=== PATIENT | female | born 1985 | race Caucasian/White ===

== ENCOUNTER → 2016-03-21 | Outpatient (CLI) | payer OTHER | LOC: RAD 09:42 | PROVIDERS: ATTEND Physician Assistant | DX: M23.92 Unspecified internal derangement of left knee (principal) | CPT/HCPCS: 78315; A9503; Q9969 ==

== ENCOUNTER → 2016-04-05 | Outpatient (CLI) | payer OTHER ==
[2016-04-05 10:11] LABS: ABSOLUTE EOSINOPHILS # (AUTO) 0.1 10^3/uL (0.0-0.6); ABSOLUTE LYMPHOCYTES (AUTO) 1.5 10^3/uL (0.5-4.7); ABSOLUTE MONOCYTES (AUTO) 0.4 10^3/uL (0.1-1.4); ABSOLUTE NEUT (AUTO) 3.7 10^3/uL (1.7-8.2); BASOPHILS % (AUTO) 0.2 % (0-2); HEMATOCRIT 45.3 % (36.0-47.0); HGB HCT DIFFERENCE -0.3; LYMPHOCYTES % (AUTO) 26.5 % (13-45); MEAN CORPUSCULAR HEMOGLOBIN 30.5 pg (27.0-33.4); MEAN CORPUSCULAR HGB CONC 33.1 g/dL (32.0-36.0); MEAN CORPUSCULAR VOLUME 92 fl (80-97); MONOCYTES % (AUTO) 6.5 % (3-13); RED BLOOD COUNT 4.92 10^6/uL (3.72-5.28); RED CELL DISTRIBUTION WIDTH 13.5 % (11.5-14.0); SEGMENTED NEUTROPHILS % (AUTO) 65.8 % (42-78); WHITE BLOOD COUNT 5.6 10^3/uL (4.0-10.5)
[2016-04-05 10:36] LABS: ALANINE AMINOTRANSFERASE 35 U/L (9-52); ALBUMIN 4.5 g/dL (3.5-5.0); ALKALINE PHOSPHATASE 65 U/L (38-126); ANION GAP 11 (5-19); ASPARTATE AMINO TRANSFERASE 26 U/L (14-36); BILIRUBIN,TOTAL 1.1 mg/dL (0.2-1.3); BLOOD UREA NITROGEN 14 mg/dL (7-20); CALCIUM 10.1 mg/dL (8.4-10.2); CARBON DIOXIDE 30 mmol/L (22-30); CHLORIDE 101 mmol/L (98-107); CREATININE RESULT 0.85 mg/dL (0.52-1.25); GLUCOSE 78 mg/dL (75-110); POTASSIUM 3.8 mmol/L (3.6-5.0); SODIUM 141.6 mmol/L (137-145); TOTAL PROTEIN 7.5 g/dL (6.3-8.2); URIC ACID 4.8 mg/dL (2.5-6.2)
[2016-04-05 10:39] LABS: C-REACTIVE PROTEIN < 5.0 mg/L (<10.0)
[2016-04-05 11:13] LABS: ERYTHROCYTE SEDIMENTATION RATE 4 mm/hr (0-20)
== END ==
LOC: OD 08:41
PROVIDERS: ATTEND Physician Assistant
DX: M25.562 Pain in left knee (principal); R60.9 Edema, unspecified
CPT/HCPCS: 36415; 80053; 84550; 85025; 85652; 86038; 86140; 86430

== ENCOUNTER → 2016-11-30 | Outpatient (CLI) | payer MEDICAID ==
--- NOTE | 2016-11-30 11:56 | RADIOLOGY REPORT (SQ) ---
EXAM DESCRIPTION: TIBIA FIBULA RIGHT COMPLETED DATE/TIME: 11/30/2016 11:47 am REASON FOR STUDY: UNSPECIFIED INJURY OF RIGHT LOWER LEG, INITIAL ENCOUNTER S89.91XA UNSPECIFIED INJ URY OF RIGHT LOWER LEG, INITIAL ENCO COMPARISON: None. NUMBER OF VIEWS: Two views. TECHNIQUE: Two radiographic images acquired of the right tibia and fibula to include the knee and an kle in at least one projection. LIMITATIONS: None. FINDINGS: MINERALIZATION: Normal. BONES: No acute fracture or dislocation. No worrisome bone lesions. SOFT TISSUES: No obvious swelling or foreign body. OTHER: No other significant finding. IMPRESSION: NEGATIVE STUDY OF THE RIGHT TIBIA AND FIBULA. NO RADIOGRAPHIC EVIDENCE OF ACUTE INJURY. TECHNICAL DOCUMENTATION: JOB ID: [id number] [employer]- All Rights Reserved
== END ==
LOC: OD 11:30
PROVIDERS: ATTEND Nurse Practitioner Acute Care
DX: S89.91XA Unspecified injury of right lower leg, initial encounter (principal); X58.XXXA Exposure to other specified factors, initial encounter

== ENCOUNTER → 2016-12-11 | Outpatient (CLI) | payer MEDICAID ==
--- NOTE | 2016-12-11 12:30 | RADIOLOGY REPORT (SQ) ---
EXAM DESCRIPTION: HAND RIGHT 3 VIEWS COMPLETED DATE/TIME: 12/11/2016 11:55 am REASON FOR STUDY: UNSP INJURY OF RIGHT WRIST, HAND AND FINGER(S), INIT ENCNTR S69.91XA UNSP INJURY OF RIGHT WRIST, HAND AND FINGER(S), INI COMPARISON: None. EXAM PARAMETERS: NUMBER OF VIEWS: Three views. TECHNIQUE: AP, lateral and oblique radiographic images acquired of the right hand. LIMITATIONS: None. FINDINGS: MINERALIZATION: Normal. BONES: No acute fracture or dislocation. No worrisome bone lesions. JOINTS: No effusions. SOFT TISSUES: No soft tissue swelling. No foreign body. OTHER: No other significant finding. IMPRESSION: NEGATIVE STUDY OF THE RIGHT HAND. NO RADIOGRAPHIC EVIDENCE OF ACUTE INJURY. TECHNICAL DOCUMENTATION: JOB ID: [id number] [employer]- All Rights Reserved
== END ==
LOC: OD 11:29
PROVIDERS: ATTEND Nurse Practitioner Acute Care
DX: S69.91XA Unspecified injury of right wrist, hand and finger(s), initial encounter (principal); X58.XXXA Exposure to other specified factors, initial encounter

== ENCOUNTER → 2016-12-22 | Outpatient (CLI) | payer MEDICAID ==
--- NOTE | 2016-12-22 09:52 | RADIOLOGY REPORT (SQ) ---
EXAM DESCRIPTION: CHEST PA/LATERAL COMPLETED DATE/TIME: 12/22/2016 8:45 am REASON FOR STUDY: SHORTNESS OF BREATH COMPARISON: 01/04/2016 EXAM PARAMETERS: NUMBER OF VIEWS: two views TECHNIQUE: Digital Frontal and Lateral radiographic views of the chest acquired. RADIATION DOSE: NA LIMITATIONS: none FINDINGS: LUNGS AND PLEURA: Surgical katya are present in the medial right lung apex. No focal infiltrates. No pleural effusion. No pneumothorax. MEDIASTINUM AND HILAR STRUCTURES: No masses or contour abnormalities. HEART AND VASCULAR STRUCTURES: Heart normal size. No evidence for failure. BONES: Osteopenic. Old healed right posterolateral 8th rib fracture HARDWARE: None in the chest. OTHER: No other significant finding. IMPRESSION: No acute findings TECHNICAL DOCUMENTATION: JOB ID: [id number] [employer]- All Rights Reserved
== END ==
LOC: OD 08:28
PROVIDERS: ATTEND Family Medicine
DX: R06.02 Shortness of breath (principal)
CPT/HCPCS: 71020

== ENCOUNTER 2017-03-29 14:49 | Day surgery (SDC) | payer OTHER, MEDICAID ==
[2017-03-23 09:55] LABS: APPEARANCE,URINE SLIGHTLY-CLOUDY; BILIRUBIN,URINE NEGATIVE (NEGATIVE); COLOR,URINE YELLOW; GLUCOSE, URINE NEGATIVE (NEGATIVE); KETONES,URINE NEGATIVE (NEGATIVE); LEUKOCYTE ESTERASE,URINE NEGATIVE (NEGATIVE); NITRITE,URINE NEGATIVE (NEGATIVE); PROTEIN,URINE NEGATIVE (NEGATIVE); URINE SPECIFIC GRAVITY 1.012; UROBILINOGEN,URINE NEGATIVE mg/dL (<2.0)
[2017-03-23 09:56] LABS: ABSOLUTE LYMPHOCYTES (AUTO) 1.5 10^3/uL (0.5-4.7); ABSOLUTE MONOCYTES (AUTO) 0.3 10^3/uL (0.1-1.4); ABSOLUTE NEUT (AUTO) 2.6 10^3/uL (1.7-8.2); BASOPHILS % (AUTO) 0.5 % (0-2); HEMATOCRIT 41.8 % (36.0-47.0); HEMOGLOBIN 14.4 g/dL (12.0-15.5); MEAN CORPUSCULAR HEMOGLOBIN 31.3 pg (27.0-33.4); MEAN CORPUSCULAR HGB CONC 34.5 g/dL (32.0-36.0); MEAN CORPUSCULAR VOLUME 91 fl (80-97); MONOCYTES % (AUTO) 6.1 % (3-13); PLATELET COUNT 161 10^3/uL (150-450); RED CELL DISTRIBUTION WIDTH 13.8 % (11.5-14.0); SEGMENTED NEUTROPHILS % (AUTO) 59.4 % (42-78); TOTAL CELLS COUNTED % (AUTO) 100 %; WHITE BLOOD COUNT 4.4 10^3/uL (4.0-10.5)
[2017-03-23 10:27] LABS: ANION GAP 11 (5-19); BLOOD UREA NITROGEN 7 mg/dL (7-20); CARBON DIOXIDE 28 mmol/L (22-30); CHLORIDE 104 mmol/L (98-107); GLUCOSE 85 mg/dL (75-110); SODIUM 142.6 mmol/L (137-145)
--- NOTE | 2017-03-23 13:58 | EKG REPORT ---
SEVERITY:- NORMAL ECG - SINUS RHYTHM : Confirmed by: Adiel Jimenez MD 23-Mar-2017 13:57:41
[~2017-03-29 14:49] MED LIST: CLINDAMYCIN 600 MG/D5W RTU 600 MG/50 ML RTUPB IV PRN; LACTATED RINGERS 1000 ML IV PRN; LIDOCAINE 0.5% INJ-PF (5 MG/ML) 50 ML SDV SUBCUT PRN
[2017-03-29] MEDS ORDERED: ACETAMINOPHEN 325 MG TABLET ONE (16:59)
[2017-03-29] MEDS ORDERED: MIDAZOLAM 2 MG/2 ML INJ ONE (18:38)
[2017-03-29] MEDS ORDERED: PROPOFOL INJ 200 MG/20 ML VIAL IV ONE (18:38)
[2017-03-29] MEDS ORDERED: HYDROMORPHONE HCL INJ/PF 2 MG/ML AMPULE ONE ×2 (18:38→18:39)
[2017-03-29] MEDS ORDERED: ACETAMINOPHEN 100 ML IV ONE (18:38)
[2017-03-29] MEDS ORDERED: BUPIVACAINE HCL 0.5 % INJ/PF 30 ML SDV ONE (18:38)
[2017-03-29] MEDS ORDERED: ONDANSETRON HCL INJ/PF 4 MG/2 ML SDV ONE ×2 (18:38→21:16)
[2017-03-29] MEDS ORDERED: FENTANYL CITRATE INJ/PF 100 MCG/2 ML AMPUL ONE (18:38)
[2017-03-29] MEDS ORDERED: PROMETHAZINE HCL INJ 25 MG/1 ML VIAL IV PRN (19:21)
[2017-03-29] MEDS ORDERED: MEPERIDINE HCL/PF INJ 25 MG/1 ML DISP.SYRIN IV PRN (19:21)
[2017-03-29] MEDS ORDERED: DIPHENHYDRAMINE HCL 50 MG/ML VIAL IV PRN (19:21)
[2017-03-29] MEDS ORDERED: FENTANYL CITRATE INJ/PF 100 MCG/2 ML AMPUL IV PRN ×3 (19:21)
--- NOTE | 2017-03-29 20:28 | RADIOLOGY REPORT (SQ) ---
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 FLUOROSCOPY TIME: 0.4 MINUTES. 2 images saved to PACS. TECHNIQUE: Intra-operative images acquired during surgical procedure to evaluate progress. NUMBER OF IMAGES: 2 LIMITATIONS: None. FINDINGS: 2 fluoroscopic images demonstrates 3 cannulated screws transfixing the tibial tuberosity. No gross complication. IMPRESSION: IMAGE(S) OBTAINED DURING PROCEDURE. COMMENT: Quality ID [id number]: Final reports for procedures using fluoroscopy that document radiation exp osure indices, or exposure time and number of fluorographic images (if radiation exposure indices are not available) Please consult full operative report of the attending physician for description of the procedure. TECHNICAL DOCUMENTATION: JOB ID: [id number] [employer]- All Rights Reserved
--- NOTE | 2017-03-29 20:28 | RADIOLOGY REPORT (SQ) ---
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 FLUOROSCOPY TIME: 0.4 MINUTES. 2 images saved to PACS. TECHNIQUE: Intra-operative images acquired during surgical procedure to evaluate progress. NUMBER OF IMAGES: 2 LIMITATIONS: None. FINDINGS: 2 fluoroscopic images demonstrates 3 cannulated screws transfixing the tibial tuberosity. No gross complication. IMPRESSION: IMAGE(S) OBTAINED DURING PROCEDURE. COMMENT: Quality ID [id number]: Final reports for procedures using fluoroscopy that document radiation exp osure indices, or exposure time and number of fluorographic images (if radiation exposure indices are not available) Please consult full operative report of the attending physician for description of the procedure. TECHNICAL DOCUMENTATION: JOB ID: [id number] [employer]- All Rights Reserved
--- NOTE | 2017-03-29 20:41 | Operative Report ---
Operative Report DATE OF SURGERY: 03/29/17 PREOPERATIVE DIAGNOSIS: Left chronic patellofemoral pain syndrome POSTOPERATIVE DIAGNOSIS: Same OPERATION: Left knee diagnostic arthroscopy and tibial tubercle transfer SURGEON: ANASTASIA BHATIA ANESTHESIA: GA TISSUE REMOVED OR ALTERED: none COMPLICATIONS: none ESTIMATED BLOOD LOSS: 30mL INTRAOPERATIVE FINDINGS: as above PROCEDURE: After receiving preoperative antibiotics patient was brought to the operating room where she was induced and intubated in supine position. A tourniquet has been applied to the left side and the left lower extremity was prepped and draped in a normal sterile surgical fashion. MRI was done identifying the left knee as the correct site. Esmarch was used to exsanguinate the extremity and the tourniquet was inflated at 300 mmHg. Marcaine was injected in the 2 previous portal sites. 11 blade was used to establish the anterior lateral portal first and the scope was introduced and the joint was distended with sterile saline solution. Anteromedial portal was established and then diagnostic scope was done. Patellofemoral joint was pristine. There is no chondromalacia or articular defect. Tracking jackson she was tracking laterally as anticipated. I then placed the extremity against the post and open the medial compartment where she also had pristine meniscus and cartilage. Flexed the knee and visualize the ACL PCL which were intact. At this point I placed the leg in [id number] and visualize the lateral compartment also show a complete pristine cartilage and lateral meniscus. Popliteal tendon was visualized. Fluid from the knee was then removed and then the instruments were removed. I then proceeded to do a 3 inch incision right over the distal aspect of the patella tendon over the tibial tubercle. I was able to then dissect medial lateral to the tibial tubercle. I released just about an inch of the tibialis anterior fascial tissue and expose the lateral aspect of the proximal tibia. Medially I was able then to place 2 K wires to use as a guide to use my saw with period was about 60 angle when I proceeded to use my saw to do my initial cup. I then went laterally and used a saw and completed my cut. I used the osteotome to then release it distally and allow for mobilization of the tibial tubercle. Once the tibial tubercle was mobile and freed was able to transfer medially and anterior. I used 3 K wires and used C-arm to confirm placement of the wires and make sure that was bicortical. I measured the appropriate length and placed 3 5.0 cannulated fully threaded screws. I did use the 3.5 cannulated drill to just drilled the proximal tibial tubercle to allow compression of the tubercle against the remaining tibia. The gap produced from the transfer was then filled with cancellus chips. AP and lateral x-rays were taken showing my typical tubercle transfer. Proceeded to approximate the tissue first using 0 Vicryl to approximate the tibialis anterior fascial layer to cover the osteotomy. We then proceeded to approximate the subcu tissue with 0 Vicryl and 2-0 Vicryl for dermis. We used 4 -0 Monocryl running subcuticular closure. Steri-Strips were applied and then 4 x 4 dressing was applied over the Steri-Strips. Soft roll was used wrapped extremity and then overwrapped with an Td bandage. Tourniquet was let down and drapes were removed. Patient was placed in a knee immobilizer. Extremity was elevated and the patient was transferred to PACU in stable condition once extubated.
--- NOTE | 2017-03-29 20:45 | PDOC DISCHARGE SUMMARY ---
Discharge Summary (SDC) - Discharge Final Diagnosis: Left knee diagnostic arthroscopy and tibial tubercle transfer Date of Surgery: 03/29/17 Discharge Date: 03/29/17 Condition: Good Treatment or Instructions: Keep knee immobilizer on. Okay to keep the dressing dry clean and intact for 4 days. Remove dressing in 4 days and okay to shower. Just for support and safety. Ice and elevate when not ambulating. Okay to weight-bear as tolerated with a knee immobilizer on. Instructed to follow-up in 10-14 days in the office. Prescriptions: Hydrocodone Bit/Acetaminophen [Hydrocodon-Acetaminophen 5-325] 1 - 2 each PO Q4HP PRN #60 tablet PRN Reason: Ondansetron HCl [Zofran 4 mg Tablet] 1 tab PO Q6HP PRN #20 tablet PRN Reason: Referrals: MELO DEWITT DO [Primary Care Provider] - Discharge Diet: As Tolerated Respiratory Treatments at Home: Deep Breathing/Coughing Discharge Activity: No Driving, No Lifting/Push/Pulling, Slowly Increase Activity Home Care Assistance: None Needed Adaptive Devices on Discharge: Axillary Crutches Report the Following to Your Physician Immediately: Shortness of Breath, Vomiting, Increase in Pain, Fever over 101 Degrees, Unusual Bleeding, Redness, Swelling, Warmth, Increased Soreness, Drainage-Yellow, Drainage-Hendrickson, Drainage- Green, Drainage-Foul Smelling
[2017-03-29] MEDS ORDERED: HYDROCODONE/ACETAMINOPHEN 7.5-325 MG TABLET PO PRN (22:24)
[2017-03-30] MEDS: ONDANSETRON HCL INJ/PF 4 MG/2 ML SDV IV PRN ×2 (02:26→10:38)
[2017-03-30] MEDS: HYDROCODONE/ACETAMINOPHEN 7.5-325 MG TABLET PO PRN ×2 (02:27→07:32)
[2017-03-30 10:49] VITALS: BP 102/62
== END 2017-03-30 11:19 | disposition home or self-care (01) ==
LOC: OROUT 14:49 → 4S 21:54 → OROUT 03-30 11:19
PROVIDERS: ATTEND Orthopaedic Surgery
PROC: 0SJD4ZZ Inspection of Left Knee Joint, Percutaneous Endoscopic Approach (ICD-10-PCS; principal; 2017-03-29 16:30)
DX: M22.2X2 Patellofemoral disorders, left knee (principal); M22.42 Chondromalacia patellae, left knee; M23.8X2 Other internal derangements of left knee; Z88.0 Allergy status to penicillin; Z88.5 Allergy status to narcotic agent; Z79.1 Long term (current) use of non-steroidal anti-inflammatories (NSAID); Z79.899 Other long term (current) drug therapy; Z91.040 Latex allergy status
CPT/HCPCS: 93005; 36415; 85025; 81025; 80048; 81001; 73560; 93010; 29870; 27418; L1830; C1713; J2250; J3010; J1170; J2405 ×2; J2704; J0131; 01392

== ENCOUNTER 2018-02-25 02:18 | Inpatient (IN) | payer MEDICAID ==
[2018-02-25] MEDS ORDERED: OXYTOCIN/NORMAL SALINE 20 UNIT/1,000 ML RTUINJ ONE (02:50)
[2018-02-25] MEDS ORDERED: MISOPROSTOL 0.2 MG TABLET ONE (02:50)
[2018-02-25] MEDS ORDERED: OXYTOCIN 10 UNIT/ML VIAL ONE (02:50)
[2018-02-25] MEDS ORDERED: LIDOCAINE 1% INJ-PF (10 MG/ML) 30 ML SDV ONE (02:50)
[2018-02-25] MEDS ORDERED: EPHEDRINE SULFATE INJ 50 MG/1 ML AMPULE ONE (02:53)
[2018-02-25] MEDS ORDERED: FENTANYL/BUPIVACAINE/NS/PF 300 MCG/150 ML RTUINJ EPI ONE (02:53)
[2018-02-25] MEDS ORDERED: FENTANYL CITRATE INJ/PF 100 MCG/2 ML AMPUL ONE (02:53)
[2018-02-25] MEDS ORDERED: PHENYLEPHRINE HCL INJ/PF 10 MG/1 ML SDV ONE (02:53)
[2018-02-25 02:54] LABS: APPEARANCE,URINE SLIGHTLY-CLOUDY; BILIRUBIN,URINE NEGATIVE (NEGATIVE); COLOR,URINE YELLOW; GLUCOSE, URINE NEGATIVE (NEGATIVE); KETONES,URINE NEGATIVE (NEGATIVE); LEUKOCYTE ESTERASE,URINE LARGE (NEGATIVE); NITRITE,URINE NEGATIVE (NEGATIVE); PROTEIN,URINE NEGATIVE (NEGATIVE); URINE SPECIFIC GRAVITY 1.005; UROBILINOGEN,URINE NEGATIVE mg/dL (<2.0)
[2018-02-25] MEDS ORDERED: BUPIVACAINE HCL 0.25 % INJ/PF (2.5 MG/1 ML) 30 ML VIAL ONE (02:54)
[2018-02-25] MEDS: RINGERS SOLUTION,LACTATED 1,000 ML IV PRN ×4 (02:56→08:23)
[2018-02-25 03:08] LABS: URINE AMPHETAMINES SCREEN NEGATIVE; URINE BARBITURATES SCREEN NEGATIVE; URINE BENZODIAZEPINES SCREEN NEGATIVE; URINE COCAINE SCREEN NEGATIVE; URINE MARIJUANA (THC) SCREEN NEGATIVE; URINE METHADONE SCREEN NEGATIVE
--- NOTE | 2018-02-25 03:13 | Admission Physical ---
Datetime Report Generated by CPN: 02/25/2018 03:12 CURRENT ADMISSION Chief Complaint: Uterine Contractions; Suspected Ruptured Membranes Indication for Induction: Not Applicable Admit Impression : Term, Intrauterine ; Ruptured Membranes Admit Plan: Admit to Unit; Initiate Labor Protocol ALLERGIES Medication Allergies: Yes Medication Allergies: haloperidol lactate/"Extreme Muscle (02/25/2018); oxycodone HCl/Itching, Swelli (02/25/2018); Penicillins/"Throat Swellin (02/25/2018); haloperidol/"Extreme Muscle (02/25/2018); oxycodone/Itching, Swelli (02/25/2018); acetaminophen/Swelling, Nause (02/25/2018); doxycycline/Throat Swelling (02/25/2018); latex/"Swelling, redn (02/25/2018) OBSTETRICAL HISTORY EDC: 03/15/2018 00:00 : 6 Para: 2 Term: 0 : 2 SAB: 3 Livin Obstetrical History Comments: g1- 2007, sab. 7 weeks g2-2007, sab, 4 weeks g3-2011, , 35 weeks, female, 5lb 11oz, was a twin but twin was lost in first trimester and PTL with PTD g4-2011, , 30 weeks, 3lb 12 oz, male, PTL with PTD, placental calcifications g5-2017, sab, 4 weeks g6-current , pubic symphysis diastasis, on P17 SEE RECORDS Alcohol: No Marijuana : No Cocaine: No Other Illicit Drugs: No Cigarettes: Never Smoker. [id number] MEDICAL HISTORY Prehemmer Surgery: Yes Hosp/Surgery: Yes Psychiatric Disorders: Yes Medical History Comments: childbirth x 2, anxiety, appendix removed, endometriosis, , spontaneous pneumo, knee x2 PHYSICAL EXAM General: Normal HEENT: Normal Neurologic: Normal Thyroid: Normal Heart: Normal Lungs: Normal Breast: Normal Back: Normal Abdomen: Normal Genitourinary Exam: Normal Extremities: Normal DTRs: Normal Pelvic Type: Adequate Vital Signs: Reviewed; Within Normal Limits VAGINAL EXAM Dilatation: 7-8 Effacement: 90 Station: -2 MEMBRANES Pooling: Positive Membranes: Ruptured Amniotic Fluid Color: Clear FETUS A EGA: 37.3 Monitoring: External US FHR- Baseline: 12s Accelerations: 15X15 Decelerations: None FHR Category: Category I Admit Comment: SROM at 0130--clear PLANS FOR LABOR AND DELIVERY Labor and Delivery: None Pain Management: Epidural Feeding Preference: Formula Circumcision: N/A INFORMED CONSENT Signature: with User ID: [email or web address]
[2018-02-25 03:16] LABS: URINE PHENCYCLIDINE SCREEN NEGATIVE
[2018-02-25 03:17] LABS: ABSOLUTE EOSINOPHILS # (AUTO) 0.1 10^3/uL (0.0-0.6); ABSOLUTE LYMPHOCYTES (AUTO) 1.9 10^3/uL (0.5-4.7); ABSOLUTE MONOCYTES (AUTO) 0.6 10^3/uL (0.1-1.4); ABSOLUTE NEUT (AUTO) 8.1 10^3/uL (1.7-8.2); BASOPHILS % (AUTO) 0.4 % (0-2); EOSINOPHILS % (AUTO) 0.6 % (0-6); HEMATOCRIT 32.4 % (36.0-47.0); HEMOGLOBIN 11.5 g/dL (12.0-15.5); LYMPHOCYTES % (AUTO) 17.8 % (13-45); MEAN CORPUSCULAR HEMOGLOBIN 30.7 pg (27.0-33.4); MEAN CORPUSCULAR HGB CONC 35.4 g/dL (32.0-36.0); MEAN CORPUSCULAR VOLUME 87 fl (80-97); MONOCYTES % (AUTO) 5.5 % (3-13); PLATELET COUNT 154 10^3/uL (150-450); RED BLOOD COUNT 3.74 10^6/uL (3.72-5.28); RED CELL DISTRIBUTION WIDTH 13.4 % (11.5-14.0); SEGMENTED NEUTROPHILS % (AUTO) 75.7 % (42-78); TOTAL CELLS COUNTED % (AUTO) 100 %; WHITE BLOOD COUNT 10.7 10^3/uL (4.0-10.5)
[2018-02-25] MEDS ORDERED: MAG HYDROX/AL HYDROX/SIMETH SUSP 30 ML UDCUP ONE (05:12)
[2018-02-25] MEDS ORDERED: ONDANSETRON HCL INJ/PF 4 MG/2 ML SDV ONE (06:34)
[2018-02-25] MEDS ORDERED: ONDANSETRON HCL INJ/PF 4 MG/2 ML SDV IV ONE (06:35)
[2018-02-25] MEDS ORDERED: OXYTOCIN/NORMAL SALINE 20 UNIT/1,000 ML RTUINJ IV PRN ×2 (08:14→10:34)
[2018-02-25] MEDS ORDERED: DIPHENHYDRAMINE HCL 25 MG CAPSULE PO PRN (10:34)
[2018-02-25] MEDS ORDERED: PROMETHAZINE HCL INJ 25 MG/1 ML VIAL IV PRN ×2 (10:34→11:30)
[2018-02-25] MEDS ORDERED: MEASLES,MUMPS&RUBELLA VACC/PF 0.5 ML VIAL SUBCUT PRN ×2 (10:34→11:30)
[2018-02-25] MEDS ORDERED: MAGNESIUM HYDROXIDE SUSP 30 ML UDCUP PO PRN (10:34)
[2018-02-25] MEDS ORDERED: DIBUCAINE 1% OINTMENT 28 GM TP PRN (10:34)
[2018-02-25] MEDS ORDERED: PSEUDOEPHEDRINE HCL 30 MG TABLET PO PRN (10:34)
[2018-02-25] MEDS ORDERED: DIPH/PERTUSS(ACELL)/TETANUS VAC/PF 0.5 ML SYR (>=10YO) IM PRN (10:34)
[2018-02-25] MEDS ORDERED: NA PHOS,M-B/NA PHOS,DI-BA (ADULT) 133 ML ENEMA PR PRN (10:34)
[2018-02-25] MEDS ORDERED: ACETAMINOPHEN 325 MG TABLET PO PRN (10:34)
[2018-02-25] MEDS ORDERED: PROMETHAZINE HCL 25 MG TABLET PO PRN (10:34)
[2018-02-25] MEDS ORDERED: BENZOCAINE/MENTHOL AEROSOL SPRAY 56 ML TOP PRN (10:34)
[2018-02-25] MEDS ORDERED: PROMETHAZINE HCL 25 MG SUPP.RECT PR PRN (10:34)
[2018-02-25] MEDS ORDERED: GLYCERIN/WITCH HAZEL LEAF 1 EACH MED..PAD TP PRN (10:34)
[2018-02-25] MEDS ORDERED: ACETAMINOPHEN WITH CODEINE #3 TABLET PO PRN ×2 (10:34)
--- NOTE | 2018-02-25 10:36 | Warning Signs in Babies ---
VOD Warning Signs Datetime Report Generated by [facility]: 02/25/2018 10:36 VOD#608 -Warning Signs in Babies: Viewed with Parent(s)/Family (02/25/2018 02:20:Myra Keenan RN)
--- NOTE | 2018-02-25 11:55 | Delivery Summary ---
Del Sum A-C Datetime Report Generated by CPN: 02/25/2018 11:55 DELIVERY PERSONNEL DELIVERY PERSONNEL: [id number] Delivery Doctor:: Cherie Roberts CNM Labor and Delivery Nurse:: Macarena Cleaning RNhoop riveter Nurse:: Myra Kenean RN Dyed Raw Stock Blower Feeder/RAILROAD ACCOUNTANT: Lindy Moya, RAILROAD ACCOUNTANT II MATERNAL INFORMATION Delivery Anesthesia: Epidural Medications After Delivery: Pitocin Bolus-Please Comment; Pitocin Drip 20 Units/1000ml NSS Meds After Delivery Comment: Pitocin 20 units in 1 L NS bolusing per order Maternal Complications: None Provider Comments: Pt progressed to c/c/2 with vaginal pressure. Began pushing and quickly delivered a viable baby girl in caul with compound hand in LOP position. Baby with vigourous respiratory effort and cry spontaneoulsy after removal of amniotic membranes. Cord allowed to stop pulsating then clamped x2 and cut by FOB (3vc noted, cord blood obtained). Baby placed on maternal abdomen over towel (mother declines skin to skin). Placenta delivered spontaneoulsy intact, fundus firm @ u-1, minimal bleeding. Vaginal and perineal inspection revealed no lacerations. Mother holding baby in room and stable at this time. LABOR SUMMARY EDC: 03/15/2018 00:00 Attempted: No Labor Anesthesia: Epidural LABOR INFORMATION Reason for Induction: Not Applicable Onset of Labor: 02/25/2018 01:30 Complete Dilatation: 02/25/2018 09:39 Oxytocin: Augmentation Group B Beta Strep: negative Antibiotics # of Doses: 0 Antibiotics Time of Last Dose: n/a Name of Antibiotic Given: n/a Steroids Given: None Reason Steroids Not Administered: Not Applicable MEMBRANES Membranes Rupture Method: Spontaneous Rupture of Membranes: 02/25/2018 01:30 Length of Rupture (hr): 8.85 Amniotic Fluid Color: Clear Amniotic Fluid Amount: Small Amniotic Fluid Odor: Normal STAGES OF LABOR Stage 1 hr: 8 Stage 1 min: 9 Stage 2 hr: 0 Stage 2 min: 42 Stage 3 hr: 0 Stage 3 min: 4 Total Time in Labor hr: 8 Total Time in Labor min: 55 VAGINAL DELIVERY Episiotomy: None Laceration #1: None Other Laceration: n/a Laceration Repair: Not Applicable CSECTION DELIVERY Primary Indication: N/A Secondary Indication: N/A CSection Incidence: N/A Labor: N/A Elective: N/A CSection Incision: N/A BABY A INFORMATION Infant Delivery Date/Time: 02/25/2018 10:21 Method of Delivery: Vaginal Born in Route : No : N/A Forceps: N/A Vacuum Extraction: N/A Shoulder Dystocia : No PRESENTATION/POSITION BABY A Presentation: Cephalic Cephalic Presentation: Vertex Vertex Position: Left Occipital Posterior Breech Presentation: N/A PLACENTA INFORMATION BABY A Placenta Delivery Time : 02/25/2018 10:25 Placenta Method of Delivery: Spontaneous Placenta Status: Delivered SCORES BABY A Heart Rate 1 min: >100 bpm Resp Effort 1 min: Good Cry Reflex Irritability 1 min: Cough or Sneeze or Pulls Away Muscle Tone 1 min: Active Motion Color 1 min: Body [place], Extremities Blue Resuscitation Effort 1 min: N/A SCORE 1 MIN: 9 Heart Rate 5 min: >100 bpm Resp Effort 5 min: Good Cry Reflex Irritability 5 min: Cough or Sneeze or Pulls Away Muscle Tone 5 min: Active Motion Color 5 min: Body [place], Extremities Blue Resuscitation Effort 5 min: N/A SCORE 5 MIN: 9 INFORMATION BABY A Gestational Age at Delivery: 37.3 Gestational Status: Early Term- 37- 38.6 Weeks Infant Outcome : Liveborn Condition : Stable Infant Sex: Female IDENTIFICATION BABY A Verification Date/Time: 02/25/2018 10:43 ID Band Number: [id number] Mother's Name Verified: Yes Infant RN Verifying Infant: MLarissa Shlomo, RN, C. Lex, RN WEIGHT/LENGTH BABY A Birthweight (gm): 3028 Weight (lb): 6 Infant Weight (oz): 11 Length (in): 19.50 Infant Length (cm): 49.53 CORD INFORMATION BABY A No. Cord Vessels: 3 Nuchal Cord : N/A Cord Blood Taken: Yes-For Eval (Mom's Blood Type - or O+) Suction: None ASSESSMENT BABY A Complications: None Physical Findings at Delivery: Within Normal Limits Infant Respirations: Appears Normal Skin to Skin: No Skin to Skin Time (min): Mother chooses not to skin to skin Dredge Pipe Installer/ALS Called : No Care By: LarisaLarissa Keenan, RN Transferred To: Remains with Mother BABY B INFORMATION : N/A SIGNATURES Assignment: Bebo Baptiste MD Signature: with User ID: Orestes : with User ID: [email or web address]
[2018-02-25] MEDS: IBUPROFEN 800 MG TABLET PO SCH ×2 (13:14→21:05)
[2018-02-25] MEDS: FERROUS SULFATE 325 MG TABLET PO SCH (17:39)
[2018-02-25] MEDS: DOCUSATE SODIUM 100 MG CAPSULE PO SCH (17:39)
[2018-02-25] MEDS: FAMOTIDINE 20 MG TABLET PO SCH (21:03)
[2018-02-26] MEDS: IBUPROFEN 800 MG TABLET PO SCH ×3 (05:18→22:03)
[2018-02-26 06:48] LABS: HEMATOCRIT 28.8 % (36.0-47.0); HEMOGLOBIN 10.3 g/dL (12.0-15.5); MEAN CORPUSCULAR HGB CONC 35.6 g/dL (32.0-36.0); MEAN CORPUSCULAR VOLUME 87 fl (80-97); PLATELET COUNT 127 10^3/uL (150-450); RED BLOOD COUNT 3.31 10^6/uL (3.72-5.28); RED CELL DISTRIBUTION WIDTH 13.9 % (11.5-14.0); WHITE BLOOD COUNT 9.8 10^3/uL (4.0-10.5)
--- NOTE | 2018-02-26 11:10 | PDOC PROGRESS REPORT ---
Subjective-OB Progress Note for:: 02/26/18 Subjective: 32yo s/p ppd1. Ambulating and voiding without difficulty. Reports minimal bleeding and cramping well controlled with medication, reports she thought she had a migraine yesterday but has realized that every time she sits up or changes position the pain gets worse. Wondering if she has an epidural headache, reports tylenol allergy, states it makes her itchy and nauseated but agreeable to trying fioricet this am to see if that would help. No other concerns this am. Physical Exam (OB) Vital Signs: Temp Pulse Resp BP Pulse Ox 98.5 F 64 16 99/49 L 97 02/26/18 08:16 02/26/18 08:16 02/26/18 08:16 02/26/18 08:16 02/26/18 08:16 Intake & Output 02/25/18 02/26/18 02/27/18 06:59 06:59 06:59 Intake Total 142 780 Balance 142 780 Weight 65.9 kg - General General Appearance: Appears well In distress: None - PIH/Pre-Eclampsia DTR's: 1 + Clonus: Negative Headache: Present - frontal and occipital that worsens with movement Epigastric Pain: No Visual Changes: No - Episiotomy/Laceration Site Condition: N/A - Lochia Lochia Amount: Scant < 10 ml Lochia Color: Rubra/Red - Abdomen Description: Soft, Round Hernia Present: No Fundal Description: Firm Fundal Height: u/u - u/2 - Respiratory Respiratory Status: No respiratory distress - Extremities Upper extremity: Normal inspection Lower extremities: Normal inspection - Neurological Cognition: Normal Orientation: AAOx4 - Psychological Associated symptoms: Normal affect Objective-Diagnostic Laboratory: 02/26/18 06:33 02/26/18 06:33 WBC 9.8 RBC 3.31 L Hgb 10.3 L Hct 28.8 L MCV 87 MCH 31.0 MCHC 35.6 RDW 13.9 Plt Count 127 L Assessment and Plan(PN) - Assessment and Plan (1) Acute blood loss anemia Is this a current diagnosis for this admission?: Yes Plan: increase dietary iron and FeSO4 BID. (2) Vaginal delivery Is this a current diagnosis for this admission?: Yes Plan: routine pp care, monitor for s/s of infection. (3) Qualifiers: Weeks of gestation: 37 weeks Qualified Code(s): Z3A.37 - 37 weeks gestation of Is this a current diagnosis for this admission?: Yes Plan: delivered (4) Headache Qualifiers: Headache type: unspecified Is this a current diagnosis for this admission?: Yes Plan: reviewed with patient and ERON Edwards who will contact anesthesia for evaluation to r/o epidural headache. Will also treat with fioricet since patient has hx of migraines. Reviewed plan with patient who asked questions and verbalized understanding. Continue to monitor - Time Spent with Patient Time with patient: Less than 15 minutes Medications reviewed and adjusted accordingly: Yes - Disposition Anticipated Discharge: Home Within: within 24 hours
[2018-02-26] MEDS ORDERED: BUTALB/ACETAMINOPHEN/CAFFEINE 1 TAB EACH PO ONE (12:00)
[2018-02-26] MEDS ORDERED: NORMAL SALINE 1000 ML 1,000 ML IV PRN (14:21)
[2018-02-26] MEDS: PRENATAL VITAMIN W DHA CAPSULE PO SCH (14:31)
[2018-02-26] MEDS: SENNOSIDES/DOCUSATE 8.6-50 MG 1 EACH TABLET PO SCH (14:31)
[2018-02-26] MEDS: FERROUS SULFATE 325 MG TABLET PO SCH ×2 (14:32→18:41)
[2018-02-26] MEDS: FAMOTIDINE 20 MG TABLET PO SCH ×2 (14:32→22:03)
[2018-02-26] MEDS: DOCUSATE SODIUM 100 MG CAPSULE PO SCH ×2 (14:32→18:41)
[2018-02-27] MEDS: IBUPROFEN 800 MG TABLET PO SCH ×2 (08:01→14:26)
--- NOTE | 2018-02-27 09:41 | PDOC DISCHARGE SUMMARY ---
Final Diagnosis Discharge Date: 02/27/18 - Final Diagnosis (1) Headache Is this a current diagnosis for this admission?: Yes (2) Vaginal delivery Is this a current diagnosis for this admission?: Yes Discharge Data - Discharge Medication Prescriptions: Ibuprofen [Motrin 800 mg Tablet] 800 mg PO Q8HP PRN #60 tablet PRN Reason: Home Medications: Hydroxyzine Pamoate [Vistaril 50 mg Capsule] 1 tab PO DAILY 02/25/18 Ranitidine HCl [Zantac 150 mg Tablet] 1 tab PO DAILY 02/25/18 Ibuprofen [Motrin 800 mg Tablet] 800 mg PO Q8HP PRN #60 tablet 02/27/18 Vit/Dha [ Multi + Dha Capsule] 1 cap PO DAILY capsule 02/27/18 Procedures: NST Intrapartum Procedure(s): Spontaneous Vaginal Delivery - Diagnosis Test Laboratory: Temp Pulse Resp BP Pulse Ox 98.3 F 65 15 102/61 96 02/27/18 07:46 02/27/18 07:46 02/27/18 07:46 02/27/18 07:46 02/27/18 07:46 02/25/18 02/25/18 02/26/18 02:30 03:06 06:33 RBC 3.74 3.31 L Hgb 11.5 L 10.3 L Hct 32.4 L 28.8 L Urine Opiates Screen NEGATIVE - Discharge information/Instructions Discharge Activity: Balance Activity w/Rest, Pelvic Rest Discharge Diet: Regular Disposition: HOME, SELF-CARE Follow up with: [facility] in: 4, Weeks
[2018-02-27 10:01] VITALS: BP 90/60
[2018-02-27] MEDS: FERROUS SULFATE 325 MG TABLET PO SCH (10:54)
[2018-02-27] MEDS: FAMOTIDINE 20 MG TABLET PO SCH (10:54)
[2018-02-27] MEDS: DOCUSATE SODIUM 100 MG CAPSULE PO SCH (10:54)
[2018-02-27] MEDS: SENNOSIDES/DOCUSATE 8.6-50 MG 1 EACH TABLET PO SCH (10:54)
[2018-02-27] MEDS: PRENATAL VITAMIN W DHA CAPSULE PO SCH (10:54)
== END 2018-02-27 17:40 | disposition home or self-care (01) | DRG 806 ==
LOC: LC 02:18 → LR 02:53 → 2S 12:52
PROVIDERS: ADMIT Obstetrics & Gynecology Gynecology; ATTEND Obstetrics & Gynecology Gynecology
PROC: 10E0XZZ Delivery of Products of Conception, External Approach (ICD-10-PCS; principal; 2018-02-25)
DX: O32.6XX0 Maternal care for compound presentation, not applicable or unspecified (principal); D62 Acute posthemorrhagic anemia; Z37.0 Single live birth; O99.02 Anemia complicating childbirth; O74.5 Spinal and epidural anesthesia-induced headache during labor and delivery; Z3A.37 37 weeks gestation of pregnancy
CPT/HCPCS: 36415; 80307; 81005; 84112; 85025; 85027; 86592; 86850; 86900; 86901; J2370; J2405; J2590; J3010; J3490

== ENCOUNTER 2018-03-01 13:06 | Emergency (ER) | payer MEDICAID ==
[2018-03-01] MEDS ORDERED: NORMAL SALINE 1000 ML 1,000 ML IV ONE (13:37)
--- NOTE | 2018-03-01 13:40 | ER Document Report ---
ED Medical Screen (RME) - General Chief Complaint: Headache Stated Complaint: HEADACHE Time Seen by Provider: 03/01/18 13:29 Notes: 32-year-old female patient delivered vaginally on 02/25/2018. She had an epidural anesthesia and developed a spinal headache. A blood patch was done on 02/26/2018 which gave immediate relief. She did well the following day. Yesterday the headache returned with severe light and sound sensitivity. I have greeted and performed a rapid initial assessment of this patient. A comprehensive ED assessment and evaluation of the patient, analysis of test results and completion of the medical decision making process will be conducted by additional ED providers. TRAVEL OUTSIDE OF THE [place] IN LAST 30 DAYS: No - Related Data Allergies/Adverse Reactions: acetaminophen [From Tylox] Allergy (Verified 02/25/18 02:31) Swelling, Nausea, Itching doxycycline [Doxycycline] Allergy (Verified 02/25/18 02:31) Throat Swelling haloperidol [From Haldol] Allergy (Verified 02/25/18 02:31) "Extreme Muscle Spasms" latex [Latex] Allergy (Verified 02/25/18 02:31) "Swelling, redness, itchiness at site" oxycodone [From Percocet] Allergy (Verified 02/25/18 02:31) Itching, Swelling Penicillins Allergy (Verified 02/25/18 02:31) "Throat Swelling and Hives" Past Medical History - Social History Chew tobacco use (# tins/day): No Frequency of alcohol use: None Drug Abuse: None - Past Medical History Cardiac Medical History: Denies: Hx Coronary Artery Disease, Hx Heart Attack, Hx Hypertension Pulmonary Medical History: Reports: Hx Asthma - childhood, hx of spontaneous pneumo at age 22 Denies: Hx Bronchitis, Hx COPD, Hx Pneumonia Neurological Medical History: Reports: Hx Migraine. Denies: Hx Cerebrovascular Accident, Hx Seizures Renal/ Medical History: Denies: Hx Peritoneal Dialysis Musculoskeltal Medical History: Denies Hx Arthritis Past Surgical History: Reports: Hx Appendectomy, Hx Gynecologic Surgery - D&C - Immunizations Hx Diphtheria, Pertussis, Tetanus Vaccination: Yes History of Influenza Vaccine for 12/2016 - 05/2017 Season: Yes Influenza Administration Date for 12/2016 - 05/2017 Season: 12/10/16 Physical Exam - Vital signs Vitals: Temp Pulse BP Pulse Ox 98.3 F 90 115/68 99 03/01/18 13:11 03/01/18 13:11 03/01/18 13:11 03/01/18 13:11 Course - Vital Signs Vital signs: Temp Pulse Resp BP Pulse Ox 98.3 F 90 115/68 99 03/01/18 13:11 03/01/18 13:11 03/01/18 13:11 03/01/18 13:11 - Laboratory Result Diagrams: 03/01/18 15:03 Laboratory results interpreted by me: 03/01/18 15:03 RBC 3.50 L Hgb 10.7 L Hct 30.7 L Seg Neutrophils % 80.6 H Lymphocytes % 12.6 L
--- NOTE | 2018-03-01 14:28 | ER Document Report ---
ED Headache - General Chief Complaint: Headache Stated Complaint: HEADACHE Time Seen by Provider: 03/01/18 13:29 Notes: This is a 32-year-old pleasant female to the emergency department for evaluation of headache. Patient had a epidural a few days ago at the delivery of her child. Developed a spinal headache afterwards. Was seen by anesthesia and had a blood patch. Was feeling fine but today developed a headache again when she got up this morning. Headache is at the back of the head. No fever, chills, sweats. No other major symptoms. No photophobia. No vomiting. No complaints of pain at the previous spinal site. TRAVEL OUTSIDE OF THE [place] IN LAST 30 DAYS: No - HPI Patient complains to provider of: Headache Onset was: Other - After her epidural. denies: Thunderclap, While turning head Severity: Moderate Pain Level: 3 Associated symptoms: None - Related Data Allergies/Adverse Reactions: acetaminophen [From Tylox] Allergy (Verified 02/25/18 02:31) Swelling, Nausea, Itching doxycycline [Doxycycline] Allergy (Verified 02/25/18 02:31) Throat Swelling haloperidol [From Haldol] Allergy (Verified 02/25/18 02:31) "Extreme Muscle Spasms" latex [Latex] Allergy (Verified 02/25/18 02:31) "Swelling, redness, itchiness at site" oxycodone [From Percocet] Allergy (Verified 02/25/18 02:31) Itching, Swelling Penicillins Allergy (Verified 02/25/18 02:31) "Throat Swelling and Hives" Past Medical History - General Information source: Patient - Social History Smoking Status: Never Smoker Chew tobacco use (# tins/day): No Frequency of alcohol use: None Drug Abuse: None Lives with: Spouse/Significant other Family History: Reviewed & Not Pertinent, CVA Patient has suicidal ideation: No Patient has homicidal ideation: No - Past Medical History Cardiac Medical History: Denies: Hx Coronary Artery Disease, Hx Heart Attack, Hx Hypertension Pulmonary Medical History: Reports: Hx Asthma - childhood, hx of spontaneous pneumo at age 22 Denies: Hx Bronchitis, Hx COPD, Hx Pneumonia Neurological Medical History: Reports: Hx Migraine. Denies: Hx Cerebrovascular Accident, Hx Seizures Renal/ Medical History: Denies: Hx Peritoneal Dialysis Musculoskeletal Medical History: Denies Hx Arthritis Past Surgical History: Reports: Hx Appendectomy, Hx Gynecologic Surgery - D&C - Immunizations Hx Diphtheria, Pertussis, Tetanus Vaccination: Yes Review of Systems - Review of Systems Notes: Constitutional: denies: Chills, Diaphoresis, Fever, Malaise, Weakness EENT: denies: Eye discharge, Blurred vision, Tearing, Double vision, Nose congestion, Nose discharge, Throat swelling, Mouth pain Cardiovascular: denies: Palpitations, Heart racing, Orthopnea, Dyspnea, Chest pain Respiratory: denies: Cough, Hurts to breathe, Wheezing, Shortness of breath Gastrointestinal: denies: Abdominal pain, Diarrhea, Nausea, Vomiting, Black stools, bright red blood in stool Genitourinary: denies: Burning, Dysuria, Discharge, Frequency, Flank pain, Hematuria Musculoskeletal: denies: Joint pain, Joint swelling, Muscle pain, Muscle stiffness, back pain Hematologic/Lymphatic: denies: Anemia, Easy bleeding, Easy bruising, Blood clots Neurological/Psychological: denies: Confusion, Dementia, Depression, Loss of consciousness. + headache Skin: No lesions, no masses, no skin breakdown, no abscesses Physical Exam - Vital signs Vitals: Temp Pulse BP Pulse Ox 98.3 F 90 115/68 99 03/01/18 13:11 03/01/18 13:11 03/01/18 13:11 03/01/18 13:11 Interpretation: Normal - General General appearance: Appears well, Alert - HEENT Head: Normocephalic, Atraumatic Eyes: Normal Pupils: PERRL - Respiratory Respiratory status: No respiratory distress Chest status: Nontender Breath sounds: Normal Chest palpation: Normal - Cardiovascular Rhythm: Regular Heart sounds: Normal auscultation Murmur: No - Abdominal Inspection: Normal Distension: No distension Bowel sounds: Normal Tenderness: Nontender Organomegaly: No organomegaly - Back Back: Normal, Nontender - Extremities General upper extremity: Normal inspection, Nontender, Normal color, Normal ROM, Normal temperature General lower extremity: Normal inspection, Nontender, Normal color, Normal ROM, Normal temperature, Normal weight bearing. No: Guillaume's sign - Neurological Neuro grossly intact: Yes Cognition: Normal Orientation: AAOx4 Niko Coma Scale Eye Opening: Spontaneous [place] Coma Scale Verbal: Oriented [place] Coma Scale Motor: Obeys Commands [place] Coma Scale Total: 15 Speech: Normal Motor strength normal: LUE, RUE, LLE, RLE Sensory: Normal Notes: Sitting patient upright makes her headache worse. Laying her flat resolves her headache. - Psychological Associated symptoms: Normal affect, Normal mood - Skin Skin Temperature: Warm Skin Moisture: Dry Skin Color: Normal Course - Re-evaluation Re-evalutation: 03/01/18 16:24 Anesthesia has performed blood patch. Please see Dr. Malhotra note. We will discharge at this time in stable condition. 03/01/18 16:24 Laboratory 03/01/18 15:03 WBC 8.8 RBC 3.50 L Hgb 10.7 L Hct 30.7 L MCV 88 MCH 30.6 MCHC 34.8 RDW 14.0 Plt Count 169 Seg Neutrophils % 80.6 H Lymphocytes % 12.6 L Monocytes % 5.4 Eosinophils % 1.2 Basophils % 0.2 Absolute Neutrophils 7.1 Absolute Lymphocytes 1.1 Absolute Monocytes 0.5 Absolute Eosinophils 0.1 Absolute Basophils 0.0 - Vital Signs Vital signs: Temp Pulse Resp BP Pulse Ox 98.3 F 90 115/68 99 03/01/18 13:11 03/01/18 13:11 03/01/18 13:11 03/01/18 13:11 - Laboratory Result Diagrams: 03/01/18 15:03 Laboratory results interpreted by me: 03/01/18 15:03 RBC 3.50 L Hgb 10.7 L Hct 30.7 L Seg Neutrophils % 80.6 H Lymphocytes % 12.6 L Discharge - Discharge Clinical Impression: Spinal headache Condition: Good Disposition: HOME, SELF-CARE Instructions: Post-Spinal Headache ([facility]) Prescriptions: Codeine/Butalbital/ASA/Caffein [Fiorinal-Cod [id number] Cap] 1 cap PO Q12 5 Days #10 capsule Ondansetron [Zofran Odt 4 mg Tablet] 1 - 2 tab PO Q4H PRN #15 tab.rapdis PRN Reason: For Nausea/Vomiting
[2018-03-01 15:14] LABS: ABSOLUTE EOSINOPHILS # (AUTO) 0.1 10^3/uL (0.0-0.6); ABSOLUTE LYMPHOCYTES (AUTO) 1.1 10^3/uL (0.5-4.7); ABSOLUTE MONOCYTES (AUTO) 0.5 10^3/uL (0.1-1.4); ABSOLUTE NEUT (AUTO) 7.1 10^3/uL (1.7-8.2); BASOPHILS % (AUTO) 0.2 % (0-2); EOSINOPHILS % (AUTO) 1.2 % (0-6); HEMATOCRIT 30.7 % (36.0-47.0); HEMOGLOBIN 10.7 g/dL (12.0-15.5); LYMPHOCYTES % (AUTO) 12.6 % (13-45); MEAN CORPUSCULAR HEMOGLOBIN 30.6 pg (27.0-33.4); MEAN CORPUSCULAR HGB CONC 34.8 g/dL (32.0-36.0); MEAN CORPUSCULAR VOLUME 88 fl (80-97); MONOCYTES % (AUTO) 5.4 % (3-13); PLATELET COUNT 169 10^3/uL (150-450); SEGMENTED NEUTROPHILS % (AUTO) 80.6 % (42-78); TOTAL CELLS COUNTED % (AUTO) 100 %; WHITE BLOOD COUNT 8.8 10^3/uL (4.0-10.5)
[2018-03-01 16:47] VITALS: BP 106/75
== END 2018-03-01 16:47 | disposition home or self-care (01) ==
LOC: ER 13:06
DX: O89.4 Spinal and epidural anesthesia-induced headache during the puerperium (principal); J45.909 Unspecified asthma, uncomplicated; Z98.890 Other specified postprocedural states
CPT/HCPCS: 99284; 96360; 36415; 85025; J7030

== ENCOUNTER 2019-08-16 21:46 | Outpatient (CLI) | payer MEDICAID ==
[2019-08-16 22:45] LABS: BACTERIA (WET MOUNT) 4+ BACTERIA SEEN; EPITHELIALS (WET MOUNT) 4+ EPITHELIALS SEEN; RBCS (WET MOUNT) FEW RBCS SEEN; T.VAGINALIS (WET MOUNT) NO TRICHOMONAS SEEN; WBCS (WET MOUNT) FEW WBCS SEEN; YEAST (WET MOUNT) NO YEAST SEEN
[2019-08-16 22:48] LABS: APPEARANCE,URINE SLIGHTLY-CLOUDY; BILIRUBIN,URINE NEGATIVE (NEGATIVE); COLOR,URINE YELLOW; GLUCOSE, URINE NEGATIVE (NEGATIVE); KETONES,URINE NEGATIVE (NEGATIVE); LEUKOCYTE ESTERASE,URINE TRACE (NEGATIVE); NITRITE,URINE NEGATIVE (NEGATIVE); PROTEIN,URINE NEGATIVE (NEGATIVE); URINE AMPHETAMINES SCREEN NEGATIVE; URINE BARBITURATES SCREEN NEGATIVE; URINE BENZODIAZEPINES SCREEN NEGATIVE; URINE COCAINE SCREEN NEGATIVE; URINE MARIJUANA (THC) SCREEN NEGATIVE; URINE METHADONE SCREEN NEGATIVE; URINE PHENCYCLIDINE SCREEN NEGATIVE; URINE SPECIFIC GRAVITY 1.009; UROBILINOGEN,URINE NEGATIVE mg/dL (<2.0)
[2019-08-17 00:11] LABS: CHLAM PCR NOT DETECTED (NOT DETECT)
--- NOTE | 2019-08-17 01:07 | Non Stress Test Report ---
Non Stress Test Datetime Report Generated by CPN: 08/17/2019 01:07 DEMOGRAPHIC EGA NST: 35.1 INDICATION Indication for Study (NST) Other: labor check URINE RESULTS Urine Protein, NST: Negative Urine Ketones - NST: Negative Urine Glucose - NST: Negative Urine Blood - NST: Negative MONITORING Monitor Explained: Monitor Explained; Test Explained; Patient Verbalized Understanding Time on Monitor: 08/16/2019 22:03 Time off Monitor: 08/17/2019 00:07 NST Duration: 124 NST INTERVENTIONS NST Interventions: PO Hydration Physician Notified NST: Nunez BABY A: [id number] BABY A Movement : Present Contraction Frequency : 3-7 FHR Baseline : 135 Accelerations : 15X15 Decelerations : None Variability : Moderate 6-25bpm NST Review: Meets Criteria for Reactive NST NST Review and Verified By : Heena Wagner RN NST Results: Reactive NST REPORT Report Trigger: Send Report
== END 2019-08-17 00:14 | disposition home or self-care (01) ==
LOC: LC 21:46
PROVIDERS: ATTEND Student in an Organized Health Care Education/Training Program
DX: O47.03 False labor before 37 completed weeks of gestation, third trimester (principal); Z3A.35 35 weeks gestation of pregnancy; Z88.0 Allergy status to penicillin; Z88.6 Allergy status to analgesic agent; Z88.8 Allergy status to other drugs, medicaments and biological substances; Z91.040 Latex allergy status
CPT/HCPCS: 36415; 59025; 80307; 81001; 87077; 87081; 87210; 87491; 87591

== ENCOUNTER 2019-08-28 08:00 | Outpatient (CLI) | payer MEDICAID ==
[2019-08-28 09:12] LABS: URINE AMPHETAMINES SCREEN NEGATIVE; URINE BARBITURATES SCREEN NEGATIVE; URINE BENZODIAZEPINES SCREEN NEGATIVE; URINE COCAINE SCREEN NEGATIVE; URINE MARIJUANA (THC) SCREEN NEGATIVE; URINE METHADONE SCREEN NEGATIVE; URINE PHENCYCLIDINE SCREEN NEGATIVE
[2019-08-28 09:12] LABS: ABSOLUTE LYMPHOCYTES (AUTO) 1.4 10^3/uL (0.5-4.7); ABSOLUTE MONOCYTES (AUTO) 0.6 10^3/uL (0.1-1.4); ABSOLUTE NEUT (AUTO) 6.9 10^3/uL (1.7-8.2); BASOPHILS % (AUTO) 0.1 % (0-2); EOSINOPHILS % (AUTO) 0.3 % (0-6); HEMATOCRIT 31.3 % (36.0-47.0); HEMOGLOBIN 10.8 g/dL (12.0-15.5); LYMPHOCYTES % (AUTO) 15.8 % (13-45); MEAN CORPUSCULAR HEMOGLOBIN 29.4 pg (27.0-33.4); MEAN CORPUSCULAR HGB CONC 34.4 g/dL (32.0-36.0); MEAN CORPUSCULAR VOLUME 85 fl (80-97); MONOCYTES % (AUTO) 6.8 % (3-13); PLATELET COUNT 161 10^3/uL (150-450); RED BLOOD COUNT 3.67 10^6/uL (3.72-5.28); RED CELL DISTRIBUTION WIDTH 14.2 % (11.5-14.0); TOTAL CELLS COUNTED % (AUTO) 100 %
[2019-08-28] MEDS ORDERED: DEXTROSE 5%-WATER 500 ML IV PRN ×2 (09:33→10:07)
[2019-08-28 09:45] LABS: APPEARANCE,URINE SLIGHTLY-CLOUDY; BILIRUBIN,URINE NEGATIVE (NEGATIVE); COLOR,URINE YELLOW; GLUCOSE, URINE NEGATIVE (NEGATIVE); KETONES,URINE NEGATIVE (NEGATIVE); LEUKOCYTE ESTERASE,URINE MODERATE (NEGATIVE); NITRITE,URINE NEGATIVE (NEGATIVE); PROTEIN,URINE NEGATIVE (NEGATIVE); URINE SPECIFIC GRAVITY 1.006; UROBILINOGEN,URINE NEGATIVE mg/dL (<2.0)
--- NOTE | 2019-08-28 12:40 | RADIOLOGY REPORT (SQ) ---
EXAM DESCRIPTION: U/S PROFILE W/O STRESS IMAGES COMPLETED DATE/TIME: 08/28/2019 12:22 pm REASON FOR STUDY: BPP COMPARISON: None. TECHNIQUE: Limited peoples-scale realtime and static images of the fetus to measure specified parameter s. LIMITATIONS: None. FINDINGS: HEART RATE: 157 beats per minute. MEGHAN: 5.1 cm. L APPLICATIONS TRAINER 4.3 x 3.9 cm BREATHING MOVEMENT: 2 points. MOVEMENT: 2 points. POSTURE AND TONE: 2 points. QUALITATIVE MEGHAN: 2 points. OTHER: No other significant finding. IMPRESSION: BIOPHYSICAL PROFILE: 10/17. Trimester of : Third - 28 weeks to delivery COMMENT: BREATHING MOVEMENTS: 2 POINTS: PRESENT 0 POINTS: ABSENT MOTION: 2 POINTS: PRESENT 0 POINTS: ABSENT TONE: 2 POINTS: PRESENT 0 POINTS: ABSENT AMNIOTIC FLUID VOLUME: 2 POINTS: LARGEST POCKET GREATER THAN 2 CM DEPTH. 0 POINTS: NO POCKET OF 2 CM. TECHNICAL DOCUMENTATION: JOB ID: [id number] 2010 [employer]- All Rights Reserved Reading location - IP/workstation name: [email or web address]
== END 2019-08-28 13:10 | disposition home or self-care (01) ==
LOC: LC 08:00
PROVIDERS: ATTEND Obstetrics & Gynecology Gynecology
DX: O32.1XX0 Maternal care for breech presentation, not applicable or unspecified (principal); Z3A.36 36 weeks gestation of pregnancy; Z88.0 Allergy status to penicillin; Z88.6 Allergy status to analgesic agent; Z91.040 Latex allergy status; Z88.8 Allergy status to other drugs, medicaments and biological substances
CPT/HCPCS: 36415; 59025; 76819; 80307; 81005; 85025; 86850; 86900; 86901

== ENCOUNTER 2019-09-11 11:23 | Inpatient (IN) | payer MEDICAID ==
[2019-09-11 12:48] LABS: APPEARANCE,URINE SLIGHTLY-CLOUDY; BILIRUBIN,URINE NEGATIVE (NEGATIVE); COLOR,URINE STRAW; GLUCOSE, URINE NEGATIVE (NEGATIVE); KETONES,URINE NEGATIVE (NEGATIVE); LEUKOCYTE ESTERASE,URINE LARGE (NEGATIVE); NITRITE,URINE NEGATIVE (NEGATIVE); PROTEIN,URINE NEGATIVE (NEGATIVE); URINE SPECIFIC GRAVITY 1.002; UROBILINOGEN,URINE NEGATIVE mg/dL (<2.0)
[2019-09-11 13:03] LABS: URINE AMPHETAMINES SCREEN NEGATIVE; URINE BARBITURATES SCREEN NEGATIVE; URINE BENZODIAZEPINES SCREEN NEGATIVE; URINE COCAINE SCREEN NEGATIVE; URINE MARIJUANA (THC) SCREEN NEGATIVE; URINE METHADONE SCREEN NEGATIVE; URINE PHENCYCLIDINE SCREEN NEGATIVE
[2019-09-11] MEDS ORDERED: RINGERS SOLUTION,LACTATED 1,000 ML IV ONE (13:25)
[2019-09-11] MEDS ORDERED: RINGERS SOLUTION,LACTATED 1,000 ML IV PRN (13:25)
--- NOTE | 2019-09-11 13:32 | Admission Physical ---
Datetime Report Generated by CPN: 09/11/2019 13:32 CURRENT ADMISSION Chief Complaint: Uterine Contractions Admit Impression : Term, Intrauterine ; Active Labor Admit Impression- Other: cervical change made, advanced dilation, GBS+ Admit Plan: Admit to Unit Admit Plan- Other: start GBS prophylaxis ALLERGIES Medication Allergies: Penicillins/"Throat Swellin (08/16/2019); haloperidol/"Extreme Muscle (08/16/2019); oxycodone/Itching, Swelli (08/16/2019); acetaminophen/Swelling, Nause (08/16/2019); doxycycline/Throat Swelling (08/16/2019); latex/"Swelling, redn (08/16/2019) OBSTETRICAL HISTORY EDC: 09/19/2019 00:00 : 7 Para: 3 Term: 1 : 2 SAB: 3 IAB: 0 Livin Gestational Diabetes: No Rh Sensitization: No Incompetent Cervix: No ZELDA: No Infertility: No ART Treatment: No Uterine Anomaly: No IUGR: No Hx Previous C/S: No Macrosomia: No Hx Loss/Stillborn: No PIH: No Hx : No Placenta Previa/Abruption: No Depression/PP Depression: No PTL/PROM: No Post Hemorrhage: No Current Procedures: Ultrasound; NST SEE RECORDS Alcohol: No Marijuana : No Cocaine: No Other Illicit Drugs: No Cigarettes: Never Smoker. 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 Surgery: No Heart Disease: No Hosp/Surgery: No Autoimmune Disorder: No Anesthetic Complications: No Kidney Disease: No Abnormal Pap Smear: No Neuro/Epilepsy: No Psychiatric Disorders: No Other Medical Diseases: No Hepatitis/Liver Disease: No Significant Family History: No Varicosities/Phlebitis: No Trauma/Violence : No Thyroid Dysfunction: No INFECTIOUS HISTORY Gonorrhea: No Genital Herpes: Yes Chlamydia: Yes Tuberculosis: No Syphilis: No Hepatitis: No HIV/AIDS Exposure: No Rash or Viral Illness: No HPV: No Infectious History Comments: chlamydia at age 20 PHYSICAL EXAM General: Normal HEENT: Normal Neurologic: Normal Thyroid: Normal Heart: Normal Lungs: Normal Breast: Normal Back: Normal Abdomen: Normal Genitourinary Exam: Normal Extremities: Normal DTRs: Normal Pelvic Type: Adequate Vital Signs: Reviewed MEMBRANES Membranes: Intact FETUS A EGA: 38.6 Monitoring: External US FHR- Baseline: 140 Variability: Moderate 6-25bpm Accelerations: 15X15 Decelerations: None Admit Comment: at 38.6 wks sent over from the office for a labor check, GBS+, Spot check ultrasound confirms Vtx today. Pt was 5-6 cm in the office and on repeat exam [facility] . Will plan to admit and tx for GBS+ w/Vancomycin since PCN allergy w/ anaphylaxis. Attending MD is Dr Baptiste. Pt may have an epidural if she desires PLANS FOR LABOR AND DELIVERY Labor and Delivery: None Pain Management: Epidural Feeding Preference: Formula Circumcision: N/A INFORMED CONSENT Assignment: Bebo Baptiste MD Signature: with User ID: [email or web address] : with User ID: [email or web address]
[2019-09-11] MEDS ORDERED: LIDOCAINE 1% INJ-PF (10 MG/ML) 30 ML SDV ONE (13:33)
[2019-09-11] MEDS ORDERED: OXYTOCIN 10 UNIT/ML VIAL ONE (13:33)
[2019-09-11] MEDS ORDERED: MISOPROSTOL 0.2 MG TABLET ONE (13:33)
[2019-09-11] MEDS ORDERED: OXYTOCIN/0.9 % SODIUM CHLORIDE 30 UNIT/500 ML RTUINJ ONE (13:34)
[2019-09-11] MEDS ORDERED: VANCOMYCIN HCL INJ 1000 MG VIAL ONE (13:43)
[2019-09-11] MEDS: VANCOMYCIN HCL 1,000 MG in DEXTROSE 5%-WATER 250 ML IV SCH (13:50)
[2019-09-11] MEDS ORDERED: DIPHENHYDRAMINE HCL 50 MG/ML VIAL IV ONE (14:30)
[2019-09-11] MEDS ORDERED: DIPHENHYDRAMINE HCL 50 MG/ML VIAL ONE (14:37)
[2019-09-11 14:58] LABS: ABSOLUTE LYMPHOCYTES (AUTO) 1.6 10^3/uL (0.5-4.7); ABSOLUTE MONOCYTES (AUTO) 0.3 10^3/uL (0.1-1.4); ABSOLUTE NEUT (AUTO) 6.6 10^3/uL (1.7-8.2); BASOPHILS % (AUTO) 0.3 % (0-2); EOSINOPHILS % (AUTO) 0.2 % (0-6); HEMATOCRIT 34.8 % (36.0-47.0); HEMOGLOBIN 11.8 g/dL (12.0-15.5); LYMPHOCYTES % (AUTO) 18.2 % (13-45); MEAN CORPUSCULAR HEMOGLOBIN 28.6 pg (27.0-33.4); MEAN CORPUSCULAR HGB CONC 33.9 g/dL (32.0-36.0); MEAN CORPUSCULAR VOLUME 84 fl (80-97); MONOCYTES % (AUTO) 3.9 % (3-13); PLATELET COUNT 189 10^3/uL (150-450); RED BLOOD COUNT 4.13 10^6/uL (3.72-5.28); RED CELL DISTRIBUTION WIDTH 14.5 % (11.5-14.0); SEGMENTED NEUTROPHILS % (AUTO) 77.4 % (42-78); TOTAL CELLS COUNTED % (AUTO) 100 %; WHITE BLOOD COUNT 8.5 10^3/uL (4.0-10.5)
[2019-09-11] MEDS ORDERED: BUPIVACAINE HCL 0.25 % INJ/PF (2.5 MG/1 ML) 30 ML VIAL ONE (15:23)
[2019-09-11] MEDS ORDERED: EPHEDRINE SULFATE INJ 50 MG/1 ML AMPULE ONE (15:23)
[2019-09-11] MEDS ORDERED: FENTANYL/BUPIVACAINE/NS/PF 300 MCG/150 ML RTUINJ EPI ONE (15:23)
[2019-09-11] MEDS ORDERED: PHENYLEPHRINE HCL INJ/PF 10 MG/1 ML SDV ONE (16:36)
[2019-09-11] MEDS ORDERED: OXYTOCIN/0.9 % SODIUM CHLORIDE 30 UNIT/500 ML RTUINJ IV PRN ×2 (19:07→19:30)
[2019-09-11] MEDS ORDERED: PROMETHAZINE HCL INJ 25 MG/1 ML VIAL IV PRN (19:30)
[2019-09-11] MEDS ORDERED: PROMETHAZINE HCL 25 MG SUPP.RECT PR PRN (19:30)
[2019-09-11] MEDS ORDERED: DIPH/PERTUSS(ACELL)/TETANUS VAC/PF 0.5 ML SYR (>=10YO) IM PRN (19:30)
[2019-09-11] MEDS ORDERED: ZOLPIDEM TARTRATE 5 MG TABLET PO PRN (19:30)
[2019-09-11] MEDS ORDERED: MEASLES,MUMPS&RUBELLA VACC/PF 0.5 ML VIAL SUBCUT PRN (19:30)
[2019-09-11] MEDS ORDERED: ACETAMINOPHEN 650 MG SUPP.RECT PR PRN (19:30)
[2019-09-11] MEDS ORDERED: DIBUCAINE 1% OINTMENT 28 GM TP PRN (19:30)
[2019-09-11] MEDS ORDERED: DIPHENHYDRAMINE HCL 25 MG CAPSULE PO PRN (19:30)
[2019-09-11] MEDS ORDERED: MAGNESIUM HYDROXIDE SUSP 30 ML UDCUP PO PRN (19:30)
[2019-09-11] MEDS ORDERED: PROMETHAZINE HCL 25 MG TABLET PO PRN (19:30)
[2019-09-11] MEDS ORDERED: PSEUDOEPHEDRINE HCL 30 MG TABLET PO PRN (19:30)
[2019-09-11] MEDS ORDERED: ACETAMINOPHEN WITH CODEINE #3 TABLET PO PRN (19:30)
[2019-09-11] MEDS ORDERED: BENZOCAINE/MENTHOL AEROSOL SPRAY 56 ML TOP PRN (19:30)
[2019-09-11] MEDS ORDERED: NA PHOS,M-B/NA PHOS,DI-BA (ADULT) 133 ML ENEMA PR PRN (19:30)
[2019-09-11] MEDS ORDERED: GLYCERIN/WITCH HAZEL LEAF 1 EACH MED..WIPE TP PRN (19:30)
[2019-09-11] MEDS ORDERED: IBUPROFEN 800 MG TABLET ONE (20:16)
--- NOTE | 2019-09-11 22:07 | Delivery Summary ---
Del Sum A-C Datetime Report Generated by CPN: 09/11/2019 22:07 DELIVERY PERSONNEL DELIVERY PERSONNEL: [id number] Delivery Doctor:: Bebo Baptiste MD Labor and Delivery Nurse:: Alida Noel RNcompensation advisor Nurse:: Ivonne Cortez RN Dandy Operator/SUPERVISOR MEL[employer] HOUSE: Zulema Baird, ST MATERNAL INFORMATION Delivery Anesthesia: Epidural Medications After Delivery: Pitocin Bolus-Please Comment; Pitocin 30 Units in 500ml NS/D5W Delivery QBL: 50 Maternal Complications: None LABOR SUMMARY EDC: 09/19/2019 00:00 No. Babies in Womb: 1 Attempted: No Labor Anesthesia: Epidural LABOR INFORMATION Reason for Induction: Not Applicable Onset of Labor: 09/11/2019 12:38 Complete Dilatation: 09/11/2019 19:00 Oxytocin: N/A Group B Beta Strep: 1 GROUP B BETA HEMOLYTIC STREPTOCOCCUS RECOVERED Penicillin and ampicillin are drugs of choice for treatment of beta-hemolytic streptococcal infections. Susceptibility testing of penicillins and other beta-lactam agents approved by the FDA for treatment of beta-hemolytic streptococcal infections need not be performed routinely because nonsusceptible isolates are extremely rare in any beta-hemolytic streptococcus and have not been reported for Streptococcus pyogenes (group A). (CLSI) Antibiotics # of Doses: x1 Antibiotics Time of Last Dose: 1350 Name of Antibiotic Given: vancomycin Steroids Given: None Reason Steroids Not Administered: Not Applicable MEMBRANES Membranes Rupture Method: Artificial Rupture of Membranes: 09/11/2019 17:32 Length of Rupture (hr): 1.83 Amniotic Fluid Color: Clear Amniotic Fluid Amount: Moderate Amniotic Fluid Odor: None STAGES OF LABOR Stage 1 hr: 6 Stage 1 min: 22 Stage 2 hr: 0 Stage 2 min: 22 Stage 3 hr: 0 Stage 3 min: 2 Total Time in Labor hr: 6 Total Time in Labor min: 46 VAGINAL DELIVERY Episiotomy: None Laceration #1: None Laceration Repair: Not Applicable Sponge Count Correct: Yes Sharps Count Correct: Yes CSECTION DELIVERY Primary Indication: N/A Secondary Indication: N/A CSection Incidence: N/A Labor: N/A Elective: N/A CSection Incision: N/A BABY A INFORMATION Infant Delivery Date/Time: 09/11/2019 19:22 Method of Delivery: Vaginal Nurse Controlled Delivery: No Born in Route : No : N/A Forceps: N/A Vacuum Extraction: N/A Shoulder Dystocia : No PRESENTATION/POSITION BABY A Presentation: Cephalic Cephalic Presentation: Vertex Vertex Position: Left Occipital Anterior Breech Presentation: N/A PLACENTA INFORMATION BABY A Placenta Delivery Time : 09/11/2019 19:24 Placenta Method of Delivery: Spontaneous Placenta Status: Delivered SCORES BABY A Heart Rate 1 min: >100 bpm Resp Effort 1 min: Good Cry Reflex Irritability 1 min: Cough or Sneeze or Pulls Away Muscle Tone 1 min: Active Motion Color 1 min: Body [place], Extremities Blue Resuscitation Effort 1 min: Tactile Stimulation SCORE 1 MIN: 9 Heart Rate 5 min: >100 bpm Resp Effort 5 min: Good Cry Reflex Irritability 5 min: Cough or Sneeze or Pulls Away Muscle Tone 5 min: Active Motion Color 5 min: Body [place], Extremities Blue Resuscitation Effort 5 min: N/A SCORE 5 MIN: 9 INFORMATION BABY A Gestational Age at Delivery: 38.6 Gestational Status: Early Term- 37- 38.6 Weeks Infant Outcome : Liveborn Condition : Stable Infant Sex: Female IDENTIFICATION BABY A Verification Date/Time: 09/11/2019 19:41 ID Band Number: [id number] Mother's Name Verified: Yes RN Verifying Infant: Denny Cortez Denny LITTLEJOHN RN WEIGHT/LENGTH BABY A Birthweight (gm): 3187 Weight (lb): 7 Infant Weight (oz): 0 Infant Length (in): 20.50 Length (cm): 52.07 CORD INFORMATION BABY A No. Cord Vessels: 3 Nuchal Cord : Around Neck x1, Loose Cord Blood Taken: Yes-For Eval (Mom's Blood Type - or O+) Infant Suction: None ASSESSMENT BABY A Infant Complications: None Physical Findings at Delivery: Caput [place] Infant Respirations: Appears Normal Skin to Skin: No Paint Spray Inspector/ALS Called : No Transferred To: Remains with Mother BABY B INFORMATION : N/A SIGNATURES Signature: with User ID: [email or web address]
[2019-09-12] MEDS ORDERED: IBUPROFEN 800 MG TABLET ONE (07:14)
[2019-09-12] MEDS: IBUPROFEN 800 MG TABLET PO SCH ×4 (07:16→21:38)
[2019-09-12] MEDS ORDERED: FAMOTIDINE 20 MG TABLET ONE (07:32)
[2019-09-12] MEDS: FAMOTIDINE 20 MG TABLET PO SCH ×3 (07:34→21:38)
[2019-09-12 07:47] LABS: HEMATOCRIT 26.9 % (36.0-47.0); MEAN CORPUSCULAR HEMOGLOBIN 29.4 pg (27.0-33.4); MEAN CORPUSCULAR HGB CONC 34.8 g/dL (32.0-36.0); MEAN CORPUSCULAR VOLUME 84 fl (80-97); PLATELET COUNT 159 10^3/uL (150-450); RED BLOOD COUNT 3.19 10^6/uL (3.72-5.28); WHITE BLOOD COUNT 10.5 10^3/uL (4.0-10.5)
[2019-09-12 07:48] LABS: HEMOGLOBIN 9.4 g/dL (12.0-15.5)
[2019-09-12] MEDS: SENNOSIDES/DOCUSATE 8.6-50 MG 1 EACH TABLET PO SCH (10:12)
[2019-09-12] MEDS: DOCUSATE SODIUM 100 MG CAPSULE PO SCH ×2 (10:12→18:06)
[2019-09-12] MEDS: FERROUS SULFATE 325 MG TABLET PO SCH ×2 (10:12→18:06)
[2019-09-12] MEDS: PRENATAL VITAMIN W DHA CAPSULE PO SCH (10:12)
[2019-09-12] MEDS: VANCOMYCIN HCL 1,000 MG in DEXTROSE 5%-WATER 250 ML IV SCH (23:09)
[2019-09-13] MEDS: IBUPROFEN 800 MG TABLET PO SCH ×2 (05:44→15:56)
[2019-09-13 07:44] VITALS: BP 93/55
--- NOTE | 2019-09-13 08:41 | PDOC PROGRESS REPORT ---
Subjective-OB Progress Note for:: 09/13/19 Subjective: Doing well, no c/o, ready to go home, bottle feeding, scant bleeding Physical Exam (OB) Vital Signs: Temp Pulse Resp BP Pulse Ox 98.2 F 81 18 93/55 L 99 09/13/19 07:14 09/13/19 07:14 09/13/19 07:14 09/13/19 07:14 09/13/19 07:14 Intake & Output 09/12/19 09/13/19 09/14/19 06:59 06:59 06:59 Intake Total 250 300 Balance 250 300 Weight 67 kg - PIH/Pre-Eclampsia DTR's: 1 + Clonus: Negative Headache: Absent Epigastric Pain: No Visual Changes: No - Dressing Removed: No - Lochia Lochia Amount: Small 10-25 ml Lochia Color: Rubra/Red - Abdomen Description: Soft Hernia Present: No Fundal Description: Firm, Midline Fundal Height: u/3 - u/4 Objective-Diagnostic Laboratory: 09/12/19 07:20 Assessment and Plan(PN) - Assessment and Plan (1) Acute blood loss anemia Is this a current diagnosis for this admission?: Yes (2) Vaginal delivery Is this a current diagnosis for this admission?: Yes - Time Spent with Patient Time with patient: Less than 15 minutes Medications reviewed and adjusted accordingly: Yes - Disposition Anticipated Discharge: Home
--- NOTE | 2019-09-13 08:48 | PDOC DISCHARGE SUMMARY ---
Impression - Admit/DC Date/PCP Admission Date/Primary Care Provider: 09/11/19 13:40 ULICES PLAZA NP Discharge Date: 09/13/19 - Discharge Diagnosis (1) Acute blood loss anemia Is this a current diagnosis for this admission?: Yes (2) Vaginal delivery Is this a current diagnosis for this admission?: Yes - Additional Information Resuscitation Status: Full Code Discharge Diet: As Tolerated, Regular Discharge Activity: Activity As Tolerated, No Lifting Over 10 Pounds, Pelvic Re st Referrals: ULICES PLZAA NP [Primary Care Provider] - CHEO PETERSON MD [ACTIVE STAFF] - (rtc 4 weeks) Home Medications: Pnv 102/Iron/Folate 1/Dss/Dha [Vitafol Fe+ Docusate Combo Pck] 1 each PO DAILY 09/11/19 HPI Gestational Age: 38.6 Reason(s) for Admission: Onset of Labor, Group B Strep Positive Procedures: Ultrasound Intrapartum Procedure(s): Spontaneous Vaginal Delivery Hospital Course Hospital Course: routine Results Laboratory Results: WBC 10.5 10^3/uL (4.0-10.5) 09/12/19 07:20 RBC 3.19 10^6/uL (3.72-5.28) L 09/12/19 07:20 Hgb 9.4 g/dL (12.0-15.5) L D 09/12/19 07:20 Hct 26.9 % (36.0-47.0) L 09/12/19 07:20 MCV 84 fl (80-97) 09/12/19 07:20 MCH 29.4 pg (27.0-33.4) 09/12/19 07:20 MCHC 34.8 g/dL (32.0-36.0) 09/12/19 07:20 RDW 15.0 % (11.5-14.0) H 09/12/19 07:20 Plt Count 159 10^3/uL (150-450) 09/12/19 07:20 Lymph % (Auto) 18.2 % (13-45) 09/11/19 14:44 [place] % (Auto) 3.9 % (3-13) 09/11/19 14:44 Eos % (Auto) 0.2 % (0-6) 09/11/19 14:44 Baso % (Auto) 0.3 % (0-2) 09/11/19 14:44 Absolute Neuts (auto) 6.6 10^3/uL (1.7-8.2) 09/11/19 14:44 Absolute Lymphs (auto) 1.6 10^3/uL (0.5-4.7) 09/11/19 14:44 Absolute Monos (auto) 0.3 10^3/uL (0.1-1.4) 09/11/19 14:44 Absolute Eos (auto) 0.0 10^3/uL (0.0-0.6) 09/11/19 14:44 Absolute Basos (auto) 0.0 10^3/uL (0.0-0.2) 09/11/19 14:44 Seg Neutrophils % 77.4 % (42-78) 09/11/19 14:44 Urine Color STRAW 09/11/19 11:44 Urine Appearance SLIGHTLY-CLOUDY 09/11/19 11:44 Urine pH 7.0 (5.0-9.0) 09/11/19 11:44 Ur Specific [place] 1.002 09/11/19 11:44 Urine Protein NEGATIVE mg/dL (NEGATIVE) 09/11/19 11:44 Urine Glucose (UA) NEGATIVE mg/dL (NEGATIVE) 09/11/19 11:44 Urine Ketones NEGATIVE mg/dL (NEGATIVE) 09/11/19 11:44 Urine Blood SMALL (NEGATIVE) H 09/11/19 11:44 Urine Nitrite NEGATIVE (NEGATIVE) 09/11/19 11:44 Urine Bilirubin NEGATIVE (NEGATIVE) 09/11/19 11:44 Urine Urobilinogen NEGATIVE mg/dL (<2.0) 09/11/19 11:44 Ur Leukocyte Esterase LARGE (NEGATIVE) H 09/11/19 11:44 Urine Ascorbic Acid NEGATIVE (NEGATIVE) 09/11/19 11:44 Urine Opiates Screen NEGATIVE 09/11/19 11:44 Urine Methadone Screen NEGATIVE 09/11/19 11:44 Ur Barbiturates Screen NEGATIVE 09/11/19 11:44 Ur Phencyclidine Scrn NEGATIVE 09/11/19 11:44 Ur Amphetamines Screen NEGATIVE 09/11/19 11:44 U Benzodiazepines Scrn NEGATIVE 09/11/19 11:44 Urine Cocaine Screen NEGATIVE 09/11/19 11:44 U Marijuana (THC) Screen NEGATIVE 09/11/19 11:44 RPR NONREACTIVE (NONREACTIVE) 09/11/19 14:44 Blood Type O POSITIVE 09/11/19 14:44 Antibody Screen NEGATIVE 09/11/19 14:44 Plan Health Concerns: routine Plan of Treatment: d/c home, rev S&S to report Goals: no complications Time Spent: Less than 30 Minutes
[2019-09-13] MEDS: SENNOSIDES/DOCUSATE 8.6-50 MG 1 EACH TABLET PO SCH (09:50)
[2019-09-13] MEDS: DOCUSATE SODIUM 100 MG CAPSULE PO SCH (09:50)
[2019-09-13] MEDS: FERROUS SULFATE 325 MG TABLET PO SCH (09:50)
[2019-09-13] MEDS: PRENATAL VITAMIN W DHA CAPSULE PO SCH (09:50)
[2019-09-13] MEDS: FAMOTIDINE 20 MG TABLET PO SCH (09:52)
== END 2019-09-13 17:34 | disposition home or self-care (01) | DRG 806 ==
LOC: LC 11:23 → LR 13:40 → 2S 09-12 09:09
PROVIDERS: ADMIT Obstetrics & Gynecology Gynecology; ATTEND Obstetrics & Gynecology Gynecology
PROC: 10E0XZZ Delivery of Products of Conception, External Approach (ICD-10-PCS; principal; 2019-09-11)
DX: O99.824 Streptococcus B carrier state complicating childbirth (principal); D62 Acute posthemorrhagic anemia; Z37.0 Single live birth; O98.32 Other infections with a predominantly sexual mode of transmission complicating childbirth; O69.81X0 Labor and delivery complicated by cord around neck, without compression, not applicable or unspecified; O99.02 Anemia complicating childbirth; A60.09 Herpesviral infection of other urogenital tract; Z3A.38 38 weeks gestation of pregnancy
CPT/HCPCS: 1967; 36415; 80307; 81005; 85025; 85027; 86592; 86850; 86900; 86901; 94760; J1200; J2370; J2590; J3010; J3370; J3490; J7060

== ENCOUNTER 2019-09-17 11:17 | Emergency (ER) | payer MEDICAID ==
[2019-09-17] MEDS ORDERED: KETOROLAC TROMETHAMINE INJ/PF 30 MG/1 ML SDV IV ONE (11:48)
--- NOTE | 2019-09-17 11:54 | ER Document Report ---
ED General - General Chief Complaint: Vaginal Bleeding Stated Complaint: VAGINAL BLEEDING Time Seen by Provider: 09/17/19 11:30 Primary Care Provider: ULICES PLAZA, ENERGY EFFICIENCY ENGINEER [NURSE PRACTITIONER] - Follow up as needed Notes: 34-year-old female G7, P4 day 7 presenting with vaginal bleeding. She had some very mild spotting and then today has soaked through 2 pads with increased bleeding. No gapping or pain no lightheadedness no fainting. She said that she had to get Pitocin when she was here after the but had no other issues. She has a history of migraines and had a headache with visual loss earlier today which is characteristic of migraines, visual loss is better than gone and the headache is slightly better. P no clots. Ostop TRAVEL OUTSIDE OF THE [place] IN LAST 30 DAYS: No - Related Data Allergies/Adverse Reactions: acetaminophen [From Tylox] Allergy (Verified 08/16/19 23:58) Swelling, Nausea, Itching doxycycline [Doxycycline] Allergy (Verified 08/16/19 23:58) Throat Swelling haloperidol [From Haldol] Allergy (Verified 08/16/19 23:58) "Extreme Muscle Spasms" latex [Latex] Allergy (Verified 08/16/19 23:58) "Swelling, redness, itchiness at site" oxycodone [From Percocet] Allergy (Verified 08/16/19 23:58) Itching, Swelling Penicillins Allergy (Verified 08/16/19 23:58) "Throat Swelling and Hives" Past Medical History - General Information source: Patient - Social History Smoking Status: Never Smoker Chew tobacco use (# tins/day): No Frequency of alcohol use: None Drug Abuse: None Family History: Reviewed & Not Pertinent, CVA Patient has homicidal ideation: No - Past Medical History Cardiac Medical History: Denies: Hx Coronary Artery Disease, Hx Heart Attack, Hx Hypertension Pulmonary Medical History: Reports: Hx Asthma - childhood, hx of spontaneous pneumo at age 22 Denies: Hx Bronchitis, Hx COPD, Hx Pneumonia Neurological Medical History: Reports: Hx Migraine. Denies: Hx Cerebrovascular Accident, Hx Seizures Renal/ Medical History: Denies: Hx Peritoneal Dialysis Musculoskeletal Medical History: Denies Hx Arthritis Psychiatric Medical History: Denies: Hx Depression Past Surgical History: Reports: Hx Appendectomy, Hx Gynecologic Surgery - D&C - Immunizations Hx Diphtheria, Pertussis, Tetanus Vaccination: Yes Review of Systems - Review of Systems Notes: REVIEW OF SYSTEMS GEN: Denies fever, chills, weight loss ENT: Denies sore throat, nasal discharge, ear pain EYES: Denies blurry vision, eye pain, discharge CV: Denies chest pain, palpitations, edema RESP: Denies cough, shortness of breath, wheezing GI: Denies abdominal pain, nausea, vomiting, diarrhea MSK: Denies joint pain/swelling, edema, SKIN: Denies rash, skin lesions LYMPH: Denies swollen glands/lymph nodes NEURO: Denies headache, focal weakness or numbness, dizziness PSYCH: Denies depression, suicidal or homicidal ideation Type a positive PHYSICAL EXAMINATION General: No acute distress, well-nourished Head: Atraumatic, normocephalic ENT: Mouth normal, oropharynx moist, no exudates or tonsillar enlargement Eyes: Conjunctiva normal, pupils equal, lids normal Neck: No JVD, supple, no guarding CVS: Normal rate, regular rhythm, no murmurs Resp: No resp distress, equal and normal breath sounds bilaterally GI: Nondistended, soft, no tenderness to palpation, no rebound or guarding Ext: No deformities, no edema, normal range of motion in upper and lower ext Back: No CVA or midline TTP Skin: No rash, warm Lymphatic: No lymphadeopathy noted Neuro: Awake, alert. Face symmetric. GCS 15. Physical Exam - Vital signs Vitals: Temp 98.5 F 09/17/19 11:34 Course - Re-evaluation Re-evalutation: 09/17/19 14:52 Patient presents with recurrent vaginal bleeding on day 6 and was hospitalized here when she delivered and had some hemorrhage with blood loss anemia She has no symptoms of anemia now normal heart rate with no abdominal tenderness Bedside ultrasound shows thickened endometrial stripe Ordered formal ordered labs including CBC Labs show stable hemoglobin if not slightly increased but retained products on ultrasound Discussed with Dr. [place] from OB will come down to see the patient and determine proper disposition and treatment. - Vital Signs Vital signs: Temp Pulse Resp BP Pulse Ox 98.5 F 09/17/19 11:34 - Laboratory Result Diagrams: 09/17/19 12:00 09/17/19 12:00 Laboratory results interpreted by me: 09/17/19 09/17/19 12:00 12:00 Hgb 11.5 L Hct 33.5 L RDW 15.7 H AST 63 H ALT 132 H Procedures - Ultrasound/Bedside Ultrasound/Bedside Time completed: 11:50 Ultrasound: Other - Ultrasound OB transabdominal limited. Trace free fluid. Enlarged uterus which is folded/anteflexed. Endometrium measures about 2 cm. Tender. Discharge - Discharge Clinical Impression: Retained products of conception after delivery with complications Condition: Fair Disposition: ADMITTED INPATIENT Admitting Provider: [facility] Unit Admitted: Post Referrals: ULICES PLAZA NP [NURSE PRACTITIONER] - Follow up as needed
--- NOTE | 2019-09-17 12:14 | ER Document Report ---
ED Medical Screen (RME) - General Chief Complaint: Vaginal Bleeding Stated Complaint: VAGINAL BLEEDING Time Seen by Provider: 09/17/19 11:30 Primary Care Provider: ULICES PLAZA NP [Primary Care Provider] - Follow up as needed TRAVEL OUTSIDE OF THE [place] IN LAST 30 DAYS: No - HPI Notes: 09/17/19 11:46 34-year-old female 7 para 4, with a history of migraines, who is 4 days to vaginal delivery presents today with complaints of vaginal bleeding that started approximately an hour ago, has gone through 1 pad this morning. States she is also had a left frontal headache, states this is similar to previous headaches, states she had some blurred vision, which has resolved. States this seems similar to her previous migraine. Denies any nausea vomiting or diarrhea, denies any chest pain or shortness of breath, denies any fevers or chills. Has not tried any [id number] medications for the symptoms. I have greeted and performed a rapid initial assessment of this patient. A comprehensive ED assessment and evaluation of the patient, analysis of test results and completion of the medical decision making process will be conducted by additional ED providers. PHYSICAL EXAMINATION: GENERAL: Well-appearing, well-nourished and in no acute distress. HEAD: Atraumatic, normocephalic. EYES: Pupils equal round extraocular movements intact, conjunctiva are normal. NECK: Normal range of motion CV: s1, s2 regular LUNGS: No respiratory distress abd: Nondistended, no CVA tenderness appreciated bilaterally. 09/17/19 11:49 - Related Data Allergies/Adverse Reactions: acetaminophen [From Tylox] Allergy (Verified 08/16/19 23:58) Swelling, Nausea, Itching doxycycline [Doxycycline] Allergy (Verified 08/16/19 23:58) Throat Swelling haloperidol [From Haldol] Allergy (Verified 08/16/19 23:58) "Extreme Muscle Spasms" latex [Latex] Allergy (Verified 08/16/19 23:58) "Swelling, redness, itchiness at site" oxycodone [From Percocet] Allergy (Verified 08/16/19 23:58) Itching, Swelling Penicillins Allergy (Verified 08/16/19 23:58) "Throat Swelling and Hives" Past Medical History - Social History Chew tobacco use (# tins/day): No Frequency of alcohol use: None Drug Abuse: None - Past Medical History Cardiac Medical History: Denies: Hx Coronary Artery Disease, Hx Heart Attack, Hx Hypertension Pulmonary Medical History: Reports: Hx Asthma - childhood, hx of spontaneous pneumo at age 22 Denies: Hx Bronchitis, Hx COPD, Hx Pneumonia Neurological Medical History: Reports: Hx Migraine. Denies: Hx Cerebrovascular Accident, Hx Seizures Renal/ Medical History: Denies: Hx Peritoneal Dialysis Musculoskeltal Medical History: Denies Hx Arthritis Psychiatric Medical History: Denies: Hx Depression Past Surgical History: Reports: Hx Appendectomy, Hx Gynecologic Surgery - D&C - Immunizations Hx Diphtheria, Pertussis, Tetanus Vaccination: Yes Physical Exam - Vital signs Vitals: Temp 98.5 F 09/17/19 11:34 Course - Vital Signs Vital signs: Temp Pulse Resp BP Pulse Ox 98.5 F 09/17/19 11:34 Doctor's Discharge - Discharge Referrals: ULICES PLAZA, [employer]KER MACHINE [Primary Care Provider] - Follow up as needed
[2019-09-17 12:21] LABS: ABSOLUTE EOSINOPHILS # (AUTO) 0.1 10^3/uL (0.0-0.6); ABSOLUTE LYMPHOCYTES (AUTO) 1.5 10^3/uL (0.5-4.7); ABSOLUTE MONOCYTES (AUTO) 0.4 10^3/uL (0.1-1.4); ABSOLUTE NEUT (AUTO) 4.9 10^3/uL (1.7-8.2); BASOPHILS % (AUTO) 0.3 % (0-2); EOSINOPHILS % (AUTO) 1.6 % (0-6); HEMATOCRIT 33.5 % (36.0-47.0); HEMOGLOBIN 11.5 g/dL (12.0-15.5); LYMPHOCYTES % (AUTO) 21.2 % (13-45); MEAN CORPUSCULAR HEMOGLOBIN 28.9 pg (27.0-33.4); MEAN CORPUSCULAR HGB CONC 34.2 g/dL (32.0-36.0); MEAN CORPUSCULAR VOLUME 85 fl (80-97); MONOCYTES % (AUTO) 5.9 % (3-13); PLATELET COUNT 218 10^3/uL (150-450); RED BLOOD COUNT 3.96 10^6/uL (3.72-5.28); RED CELL DISTRIBUTION WIDTH 15.7 % (11.5-14.0); TOTAL CELLS COUNTED % (AUTO) 100 %; WHITE BLOOD COUNT 6.9 10^3/uL (4.0-10.5)
[2019-09-17 12:26] LABS: FIBRINOGEN 497 mg/dL (209-497); INTERNATIONAL RATION (INR) 0.94; PARTIAL THROMBOPLASTIN TIME 27.9 SEC (23.5-35.8); PROTHROMBIN TIME 12.6 SEC (11.4-15.4)
[2019-09-17 12:49] LABS: ALBUMIN 3.5 g/dL (3.5-5.0); ALKALINE PHOSPHATASE 110 U/L (38-126); ANION GAP 6 (5-19); ASPARTATE AMINO TRANSFERASE 63 U/L (14-36); BILIRUBIN,TOTAL 0.4 mg/dL (0.2-1.3); BLOOD UREA NITROGEN 14 mg/dL (7-20); CALCIUM 9.1 mg/dL (8.4-10.2); CARBON DIOXIDE 27 mmol/L (22-30); CHLORIDE 104 mmol/L (98-107); GLUCOSE 80 mg/dL (75-110); POTASSIUM 3.6 mmol/L (3.6-5.0); TOTAL PROTEIN 6.3 g/dL (6.3-8.2)
--- NOTE | 2019-09-17 14:05 | RADIOLOGY REPORT (SQ) ---
EXAM DESCRIPTION: U/S NON OB PEL W/DOPPLER IMAGES COMPLETED DATE/TIME: 09/17/2019 1:18 pm REASON FOR STUDY: 6days , +vag bleed COMPARISON: 2010 TECHNIQUE: Dynamic and static grayscale images acquired of the pelvis via transabdominal approach an d recorded on PACS. Additional selected color Doppler and spectral images recorded. LIMITATIONS: None. FINDINGS: UTERUS: Contour normal. No mass. ENDOMETRIAL STRIPE: Thickened. Question retained products of conception. CERVIX: 4.3 cm RIGHT OVARY AND DOPPLER: Ovary not seen LEFT OVARY AND DOPPLER: Ovary not seen FREE FLUID: None noted. OTHER: No other significant finding. MEASUREMENTS: UTERUS: 12.2 x 11 x 9.8 cm ENDOMETRIAL STRIPE: 2.6 cm. Suggestive of retained products of conception. RIGHT OVARY: Ovary not seen LEFT OVARY: Ovary not seen IMPRESSION: Thickened endometrium suggestive of retained products of conception. TECHNICAL DOCUMENTATION: JOB ID: [id number] 2010 [employer]- All Rights Reserved Rev-07/27 Reading location - IP/workstation name: [email or web address]
--- NOTE | 2019-09-17 15:25 | PDOC CONSULTATION ---
Consultation Consult Date: 09/17/19 Attending physician:: DUTCH NAIR Provider Consulted: DINORAH MORENO Consult reason:: Vaginal bleeding History of Present Illness Patient complains of: Vaginal bleeding History of Present Illness: STARR MONTES is a 34 year old female 34 yo who is day #6 from an uncomplicated vaginal delivery. She had no lacerations. She was given pitocin after delivery-standard amount and uterine massage. No additional uterotonics given. She had Hgb of 8 on discharge. She reports normal bleeding that was light but today she felt blood running down her leg and found she had saturated a pad. She changed this and saturated a second pad. She did not feel light headed or dizzy. She called to see if this change in bleeding was normal and was told to come in. Pad she has been wearing since arrival in ED is less than 1/2 saturated with no bleeding on chux pad below her bottom. Past Medical History Cardiac Medical History: Denies: Coronary Artery Disease, Myocardial Infarction, Hypertension Pulmonary Medical History: Reports: Asthma - childhood, hx of spontaneous pneumo at age 22 Denies: Bronchitis, Chronic Obstructive Pulmonary Disease (COPD), Pneumonia Neurological Medical History: Reports: Migraine Denies: Seizures Musculoskeltal Medical History: Denies: Arthritis Psychiatric Medical History: Denies: Depression Social History Smoking Status: Never Smoker Electronic Cigarette use?: No Family History Family History: Reviewed & Not Pertinent, CVA Parental Family History Reviewed: Yes Children Family History Reviewed: Yes Sibling(s) Family History Reviewed.: Yes Medication/Allergy Home Medications: Pnv 102/Iron/Folate 1/Dss/Dha [Vitafol Fe+ Docusate Combo Pck] 1 each PO DAILY 09/11/19 Allergies/Adverse Reactions: acetaminophen [From Tylox] Allergy (Verified 08/16/19 23:58) Swelling, Nausea, Itching doxycycline [Doxycycline] Allergy (Verified 08/16/19 23:58) Throat Swelling haloperidol [From Haldol] Allergy (Verified 08/16/19 23:58) "Extreme Muscle Spasms" latex [Latex] Allergy (Verified 08/16/19 23:58) "Swelling, redness, itchiness at site" oxycodone [From Percocet] Allergy (Verified 08/16/19 23:58) Itching, Swelling Penicillins Allergy (Verified 08/16/19 23:58) "Throat Swelling and Hives" Review of Systems Constitutional: ABSENT: chills, fever(s), headache(s), weight gain, weight loss Cardiovascular: ABSENT: chest pain, dyspnea on exertion, edema, orthropnea, palpitations Respiratory: ABSENT: cough, hemoptysis Gastrointestinal: ABSENT: abdominal pain, constipation, diarrhea, hematemesis, hematochezia, nausea, vomiting Genitourinary: ABSENT: dysuria, hematuria Musculoskeletal: ABSENT: joint swelling Integumentary: ABSENT: rash, wounds Neurological: ABSENT: abnormal gait, abnormal speech, confusion, dizziness, focal weakness, syncope Hematologic/Lymphatic: ABSENT: easy bleeding, easy bruising Physical Exam - Physical Exam Vital Signs: Temp Pulse Resp BP Pulse Ox 98.5 F 09/17/19 11:34 General appearance: PRESENT: no acute distress, cooperative Eye exam: PRESENT: conjunctiva pink Respiratory exam: PRESENT: clear to auscultation sky Cardiovascular exam: PRESENT: RRR, +S1, +S2 GI/Abdominal exam: PRESENT: soft - NOn-tender to fundal check . Fundus is 3cm below umbilicus and firm Psychiatric exam: PRESENT: appropriate affect, normal mood. ABSENT: homicidal ideation, suicidal ideation Skin exam: PRESENT: dry, intact, warm. ABSENT: cyanosis, rash - Gynecological Exam Labia: normal Urethra: normal Introitus: normal Perineum: normal Vagina: normal, discharge - Small amount of old blood in vaginal vault-2 swabs which were not fully saturated. Cervix: other - Os appears 1 cm or less dilated Cervix: normal Uterus: normal - Firm Result Laboratory Results: 09/17/19 12:00 09/17/19 12:00 09/17/19 09/17/19 12:00 12:00 WBC 6.9 RBC 3.96 Hgb 11.5 L Hct 33.5 L MCV 85 MCH 28.9 MCHC 34.2 RDW 15.7 H Plt Count 218 Seg Neutrophils % 71.0 Sodium 137.1 Potassium 3.6 Chloride 104 Carbon Dioxide 27 Anion Gap 6 BUN 14 Creatinine 0.57 Est GFR ( Amer) > 60 Glucose 80 Calcium 9.1 Total Bilirubin 0.4 AST 63 H Alkaline Phosphatase 110 Total Protein 6.3 Albumin 3.5 Impressions: Pelvis Ultrasound 09/17/19 11:44 IMPRESSION: Thickened endometrium suggestive of retained products of conception. Assessment & Plan - Diagnosis (1) Vaginal bleeding Is this a current diagnosis for this admission?: Yes - Plan Summary Plan Summary: 34 yo who is post day #6 after uncomplicated , now with episode of heavy vaginal bleeding -VSS, no tachycardia, no hypotension. Afebrile -Bleeding appears to be light now in ED -Hgb is 11 which is up from 8 six days ago. Coags normal -US done which showed EMS of 2.6, ?? Retained POC although this is more likely normal contents in involuting uterus postpartm. FIrm massage done bimanually and not further bleeding on assessment of os. -Discussed with patient in detail. Since no pain, fever, bleeding presently and stable vital signs will discharge with short interval f/u up. Precautions given for bleeding, fever or worsening condition. SHe knows to return if these occur.
[2019-09-17 15:52] VITALS: BP 118/78
== END 2019-09-17 15:50 | disposition home or self-care (01) ==
LOC: ER 11:17
DX: O72.2 Delayed and secondary postpartum hemorrhage (principal); Z88.0 Allergy status to penicillin; Z88.6 Allergy status to analgesic agent; Z91.040 Latex allergy status
CPT/HCPCS: 99284; 96374; 36415; 85025; 85384; 85610; 85730; 80053; 76856; 93976; J1885